=== PATIENT | male | born 1935 | race Caucasian/White ===

== ENCOUNTER 2016-08-16 11:27 | Inpatient (IN) | payer MEDICARE, BC ==
[~2016-08-16] VITALS: Ht 182.9 cm; Wt 90.7 kg
[~2016-08-16 11:27] MED LIST: ASPI-618 PO; BETH25TA9 PO; BLOO-668 IN; CARB1TAB24 PO; CARB1TAB39 PO; CEPH-570 PO; ENAL10TA75 PO; GLIP5TAB13 PO; MAGN400O6 PO; MELA5TAB PO; METO50TA7 PO; Metformin Hcl PO; PANT40TA2 PO; PIOG30TA10 PO; ROSU5TAB PO; SITA100T PO
[2016-08-16] MEDS ORDERED: BLOO-360 IN (11:50)
--- NOTE | 2016-08-16 12:05 | NUR ---
DR ANGELA AT THE BEDSIDE FOR EVAL AND EXAM.
[2016-08-16] MEDS ORDERED: IV NORMAL SALINE 1000 ML BAG IV ONE ×2 (12:15→14:30)
[2016-08-16] MEDS ORDERED: LEVOFLOXACIN 750MG/D5W 150 ML IV ONE ×2 (12:15→12:34)
[2016-08-16] MEDS ORDERED: GENTAMICIN SULFATE INJ 80 MG in IV DEXTROSE 5% 100 ML IV ONE (12:15)
[2016-08-16 12:34] LABS: BASOPHILS % (AUTO) 0.3 % (0.0-2.0); EOSINOPHILS # (AUTO) 0.1 K/uL (0.0-0.7); EOSINOPHILS % (AUTO) 0.9 % (0.0-7.0); HEMATOCRIT 36.1 % (40-50); HEMOGLOBIN 12.1 G/DL (14.0-18.0); LYMPHOCYTES # (AUTO) 0.9 K/UL (0.8-4.8); LYMPHOCYTES % (AUTO) 12.7 % (20.5-51.5); MEAN CORPUSCULAR HEMOGLOBIN 30.2 UUG (27.0-31.0); MEAN CORPUSCULAR HGB CONC 34 g/dL (32.0-37.0); MEAN CORPUSCULAR VOLUME 89.9 FL (82.0-92.0); MONOCYTES # (AUTO) 0.5 K/UL (0.1-1.30); MONOCYTES % (AUTO) 6.7 % (0.0-11.0); NEUTROPHILS # (AUTO) 5.4 K/UL (1.8-8.9); NEUTROPHILS % (AUTO) 79.4 % (38.5-71.5); PLATELET COUNT (AUTO) 269 K/UL (150-450); RED BLOOD CELL COUNT(AUTO) 4.02 MIL/UL (4.7-6.1); WHITE BLOOD COUNT (AUTO) 6.9 K/UL (4.0-11.2)
[2016-08-16] MEDS ORDERED: GENTAMICIN SULFATE 80 MG/2 ML VIAL ONE (12:34)
--- NOTE | 2016-08-16 12:45 | NUR ---
URINE COLLECTED AND SENT TO LAB PER MD ORDER.
[2016-08-16 12:54] LABS: CARBON DIOXIDE 27 mmol/L (21-32); CHLORIDE 104 mmol/L (98-107); CREATININE 1.4 mg/dL (0.6-1.3); GLUCOSE 128 mg/dL (74-106); POTASSIUM 4.5 mmol/L (3.5-5.1); UREA NITROGEN, BLOOD 31 mg/dL (7-18)
[2016-08-16 13:07] LABS: ALANINE AMINOTRANSFERASE 13 U/L (16-63); ALKALINE PHOSPHATASE 46 U/L (50-136); ASPARTATE AMINOTRANSFERASE 17 U/L (15-37); BILIRUBIN,DIRECT 0.1 mg/dL (0.0-0.2); BILIRUBIN,TOTAL 0.3 mg/dL (0.2-1.0); TOTAL PROTEIN, SERUM 8.1 g/dL (6.4-8.2)
[2016-08-16 13:07] LABS: *BILIRUBIN,URIN NEGATIVE (NEGATIVE); *BLOOD, URINE NEGATIVE (NEGATIVE); *CLARITY,URINE SLIGHTLY CLOUDY (CLEAR); *COLOR,URINE YELLOW (YELLOW); *KETONES,URINE TRACE (NEGATIVE); *PROTEIN,URINE 1+ (NEGATIVE); *UROBILINOGEN,URINE 0.2 E.U./dl (NORMAL); LEUKOCYTE ESTERASE ,URINE 1+ (NEGATIVE); NITRITE, URINE POSITIVE (NEGATIVE); PH,URINE 7.5 (5.0-8.0); UGLUCOSE NEGATIVE (NEGATIVE)
[2016-08-16 13:10] LABS: RBC,URINE 0-3 /HPF (0-3)
[2016-08-16 13:11] LABS: BACTERIA,URINE MANY /HPF (NONE SEEN); SQUAMOUS EPITHELIAL CELL,UR NONE SEEN /HPF (NONE SEEN)
--- NOTE | 2016-08-16 13:54 | NUR ---
Belonging list completed, pt not candidate for MRSA.
[2016-08-16] MEDS ORDERED: INSULIN REGULAR, HUMAN 300 UNIT/3 ML VIAL SQ PRN (14:30)
[2016-08-16] MEDS ORDERED: ONDANSETRON 4 MG/2 ML VIAL IV PRN (14:30)
[2016-08-16] MEDS ORDERED: DEXTROSE 50% 50 ML DISP.SYRIN IV PRN ×2 (14:30→20:14)
[2016-08-16 14:40] VITALS: BP 122/73
[2016-08-16] MEDS ORDERED: IV NS 1000 ML 1,000 ML IV ONE (15:15)
[2016-08-16 15:48] LABS: IRON, SERUM 56 ug/dL (50-175)
[2016-08-16] MEDS ORDERED: IV NS 1000 ML 1,000 ML IV PRN (16:00)
[2016-08-16] MEDS ORDERED: BLOOD SUGAR DIAGNOSTIC 1 EACH STRIP VI SCH (16:30)
--- NOTE | 2016-08-16 17:35 | NUR ---
PER DR. PAGE PUT D5NS AT 100 ML/HR IN ORDERS
[2016-08-16] MEDS: IV D5/ 0.9% NACL 1,000 ML IV PRN (17:51)
--- NOTE | 2016-08-16 19:30 | NUR ---
nsg: pt received awake but aphasic. does not follow commands. on RA saturating at 95%. tele, SR. private caregiver at the bedside. npo but on cont ivf with d5ns at 100ml/hr. HOB elevated 35 degrees. cont to monitor.
--- NOTE | 2016-08-16 19:42 | NUR ---
PT IS LAYING IN BED COMFORTABLY. NO S/S OF RESPIRATORY DISTRESS NOTED. NO P[AIN NOTED. ALL SAFETY NEEDS ARE MET. SITTER BY THE BEDSIDE.
[2016-08-16 20:00] VITALS: BP 130/78
[2016-08-16] MEDS: CARBIDOPA/LEVODOPA CR 25-100MG TABLET.SA PO SCH (21:00)
[2016-08-16] MEDS ORDERED: Medication Not On Formulary EA (Rosuvastatin Calcium (Crestor) 5 MG) PO SCH (21:00)
[2016-08-16] MEDS ORDERED: ATORVASTATIN 10 MG TABLET PO SCH (21:00)
[2016-08-16] MEDS: METOPROLOL SUCCINATE XL 50 MG TAB.SR.24H PO SCH (21:00)
[2016-08-17] VITALS: BP 139/82
--- NOTE | 2016-08-17 | NUR ---
nsg: no change in condition.
[2016-08-17] MEDS: BLOOD SUGAR DIAGNOSTIC 1 EACH STRIP VI SCH ×5 (00:04→20:56)
[2016-08-17] MEDS: INSULIN REGULAR, HUMAN 300 UNIT/3 ML VIAL SQ SCH ×3 (00:05→11:52)
[2016-08-17 04:00] VITALS: BP 139/72
[2016-08-17] MEDS: IV D5/ 0.9% NACL 1,000 ML IV PRN (04:05)
[2016-08-17] MEDS: glipiZIDE 5 MG TABLET PO SCH ×4 (05:59→18:40)
[2016-08-17] MEDS: PANTOPRAZOLE SODIUM 40 MG TABLET.DR PO SCH (05:59)
[2016-08-17] MEDS: CARBIDOPA/LEVODOPA 25-250MG TABLET PO SCH ×4 (06:00→18:40)
[2016-08-17 06:36] LABS: ALANINE AMINOTRANSFERASE 15 U/L (16-63); ALKALINE PHOSPHATASE 39 U/L (50-136); ASPARTATE AMINOTRANSFERASE 14 U/L (15-37); BILIRUBIN,TOTAL 0.3 mg/dL (0.2-1.0); CARBON DIOXIDE 25 mmol/L (21-32); CHLORIDE 105 mmol/L (98-107); GLUCOSE 144 mg/dL (74-106); POTASSIUM 3.7 mmol/L (3.5-5.1); TOTAL PROTEIN, SERUM 6.8 g/dL (6.4-8.2); UREA NITROGEN, BLOOD 18 mg/dL (7-18)
[2016-08-17 06:46] LABS: BASOPHILS % (AUTO) 0.3 % (0.0-2.0); EOSINOPHILS # (AUTO) 0.1 K/uL (0.0-0.7); EOSINOPHILS % (AUTO) 1.8 % (0.0-7.0); HEMOGLOBIN 10.4 G/DL (14.0-18.0); LYMPHOCYTES # (AUTO) 0.8 K/UL (0.8-4.8); LYMPHOCYTES % (AUTO) 20.6 % (20.5-51.5); MEAN CORPUSCULAR HEMOGLOBIN 30.7 UUG (27.0-31.0); MEAN CORPUSCULAR HGB CONC 35 g/dL (32.0-37.0); MEAN CORPUSCULAR VOLUME 88.8 FL (82.0-92.0); MONOCYTES # (AUTO) 0.4 K/UL (0.1-1.30); MONOCYTES % (AUTO) 9.2 % (0.0-11.0); NEUTROPHILS # (AUTO) 2.6 K/UL (1.8-8.9); NEUTROPHILS % (AUTO) 68.1 % (38.5-71.5)
[2016-08-17 07:09] LABS: WHITE BLOOD COUNT (AUTO) 3.9 K/UL (4.0-11.2)
[2016-08-17 07:10] LABS: HEMATOCRIT 30.2 % (40-50); PLATELET COUNT (AUTO) 200 K/UL (150-450)
--- NOTE | 2016-08-17 07:30 | NUR ---
Awake, non verbal, on moderate high back rest. IVF infusing. NPO maintained
[2016-08-17] MEDS ORDERED: PANTOPRAZOLE SODIUM 40 MG VIAL IV SCH (09:00)
--- NOTE | 2016-08-17 09:30 | NUR ---
ST eval done at bedside, with recommendation for Mechanical soft, Thickened nectar ordered. Breakfast served with aspiration precaution. Caregiver instructed.
[2016-08-17] MEDS: ASPIRIN EC 81 MG TABLET.DR PO SCH (09:33)
[2016-08-17] MEDS: BETHANECHOL CHLORIDE 25 MG TABLET PO SCH ×3 (09:34→16:11)
[2016-08-17 11:27] VITALS: BP 128/81
[2016-08-17] MEDS: PIOGLITAZONE HCL 30 MG TABLET PO SCH (11:36)
--- NOTE | 2016-08-17 12:00 | NUR ---
Noted elevated BG, patient eating Dr. Beard informed. IVF discontinued.
[2016-08-17] MEDS: LEVOFLOXACIN 750MG/D5W 150 ML IV SCH (13:42)
[2016-08-17] MEDS: ENALAPRIL 10 MG TABLET PO SCH (15:00)
[2016-08-17 15:30] VITALS: BP 106/66
--- NOTE | 2016-08-17 16:00 | NUR ---
Awake, alert, following commands.
[2016-08-17] MEDS ORDERED: DEXTROSE 50% 50 ML DISP.SYRIN IV PRN (16:15)
--- NOTE | 2016-08-17 18:13 | NUR ---
Awake, alert, but poor appetite per caregiver. Repositioned in bed comfortably
[2016-08-17 20:00] VITALS: BP 111/72
[2016-08-17] MEDS: CARBIDOPA/LEVODOPA CR 25-100MG TABLET.SA PO SCH (20:55)
[2016-08-17] MEDS: METOPROLOL SUCCINATE XL 50 MG TAB.SR.24H PO SCH (20:55)
[2016-08-17] MEDS ORDERED: PATIENT MAY USE OWN MED- MD OK PO SCH (21:00)
[2016-08-18 05:17] VITALS: BP 134/74
[2016-08-18] MEDS: CARBIDOPA/LEVODOPA 25-250MG TABLET PO SCH ×4 (06:11→18:24)
[2016-08-18] MEDS: PANTOPRAZOLE SODIUM 40 MG TABLET.DR PO SCH (06:12)
[2016-08-18] MEDS: glipiZIDE 5 MG TABLET PO SCH ×4 (06:12→18:23)
[2016-08-18] MEDS: BLOOD SUGAR DIAGNOSTIC 1 EACH STRIP VI SCH ×4 (06:33→20:42)
--- NOTE | 2016-08-18 06:37 | NUR ---
PT IN BED RESTING AT THIS TIME, SLEPT INTERMITTENTLY DURING SHIFT. IN NO ACUTE SIGNS OF DISTRESS. PT IS NONVERBAL. TURNED AND REPOSITIONED. WOUND CARE TO L AND R BUTTOCKS. BLOOD SUGAR CHECKED, LAST NIGHT WAS 67, GIVEN SNACKS, RECHECKED AND INCREASED TO 84. THIS AM BS WAS 130. CONTINUED TO MONITOR.
[2016-08-18] MEDS: ASPIRIN EC 81 MG TABLET.DR PO SCH (08:48)
[2016-08-18] MEDS: BETHANECHOL CHLORIDE 25 MG TABLET PO SCH ×3 (08:48→16:22)
[2016-08-18 11:25] VITALS: BP 117/72
[2016-08-18] MEDS: INSULIN REGULAR, HUMAN 300 UNIT/3 ML VIAL SQ PRN (11:58)
[2016-08-18] MEDS: PIOGLITAZONE HCL 30 MG TABLET PO SCH (11:58)
[2016-08-18] MEDS: LEVOFLOXACIN 750MG/D5W 150 ML IV SCH (12:06)
--- NOTE | 2016-08-18 12:37 | NUR ---
WOUND CARE CONSULT: PT PRESENTS WITH STAGE II ULCERS TO BILATERAL BUTTOCKS, PRESENT ON ADMISSION. RECOMMENDATIONS MADE FOR WOUND CARE AND SKIN PROTECTION. DISCUSSED WITH NURSING STAFF. PT IS INCONTINENT AND SOMEWHAT IMMOBILE. GERTRUDE SCORE IS 10. PT ON FIRST STEP MATTRESS. WILL SEE PRN. HEIN IN AGREEMENT WITH PLAN OF CARE. Addendum: 08/18/16 at 1238 by KEVIN SALINAS RN Amended: Links added.
[2016-08-18] MEDS ORDERED: Z GUARD REMEDY PASTE 57 GM TUBE TOP PRN (12:45)
[2016-08-18] MEDS: ENALAPRIL 10 MG TABLET PO SCH (15:00)
--- NOTE | 2016-08-18 15:03 | NUR ---
received the nursing report on the pt, z-guard will administer per 's order. Pt is laying in bed comfortably. All safety needs are met. Foxer by the bedside.
[2016-08-18 15:16] VITALS: BP 93/63
[2016-08-18] MEDS: Z GUARD REMEDY PASTE 57 GM TUBE TOP SCH ×2 (15:20→20:42)
--- NOTE | 2016-08-18 19:27 | NUR ---
PT IS SITTING UP IN BED. NO S/S OF RESPIRATORY DISTRESS NOTED. NO PAIN NOTED. CUSHION GUM APPLICATOR BY THE BEDSIDE. IV INTACT/PATENT.
--- NOTE | 2016-08-18 19:33 | NUR ---
Clinical pharmacy note-Vancomycin dosing per pharmacy Subjective: To start Vancomycin dosing on this 80 year old patient for UTI/early sepsis Objective: BUN 18 Scr 1.0 (08/17) WBC 3.9(08/17) Temp 98.6 Ht 6' Wt 200 lbs Urine culture: Staph Aureus >100k Assessment\Plan: Will start Vancomycin 1500mg IV every 16 hrs (first dose tonight at 2000) and draw trough by 4th dose (not ordered yet) for expected trough around 15( UTI but early sepsis, WBC 3.9, diabetic). Will monitor renal function closely to adjust the dose if needed. Will follow daily.
[2016-08-18 20:00] VITALS: BP 115/77
--- NOTE | 2016-08-18 20:00 | NUR ---
RECEIVED PATIENT AWAKE IN BED WITH PRIVATE CAREGIVER AT BEDSIDE. PATIENT IS ALERT TO SELF. APPEARS APHASIC BUT PATIENT DOES SPEAK AT TIMES. NO S/S OF PAIN OR DISCOMFORT. NO RESP. DISTRESS NOTED. VSS. H/L INTACT AND PATENT. PATIENT TRANSFERRED ROOM CLOSER TO NURSES STATION FOR CLOSER OBSERVATION. ON AIR MATTRESS. DRESSING NOTED TO BUTTOCKS/SACRAL AREA, C/D/I. ON RA. CALL LIGHT IN REACH. ALL NEEDS ATTENDED. WILL CONTINUE TO MONITOR.
[2016-08-18] MEDS: VANCOMYCIN IV 1,500 MG in IV NORMAL SALINE 500 ML IV SCH (20:11)
[2016-08-18] MEDS: CARBIDOPA/LEVODOPA CR 25-100MG TABLET.SA PO SCH (20:41)
[2016-08-18] MEDS: ACETAMINOPHEN 325 MG TABLET PO PRN (20:42)
[2016-08-18] MEDS: METOPROLOL SUCCINATE XL 50 MG TAB.SR.24H PO SCH (20:42)
--- NOTE | 2016-08-19 03:45 | NUR ---
PATIENT ASLEEP IN BED. REPOSITIONED TO SIDE. HEPLOCK NOTED TO RIGHT WRIST, DISLODGED. REINSERTED TO LEFT HAND #22 GAUGE. HEAVILY SLEEPING AND APPEARS SLIGHTLY DIAPHORETIC. CHECKED BLOOD SUGAR AND RECEIVED 118. VSS. WILL CONTINUE TO MONITOR AND ASSESS.
--- NOTE | 2016-08-19 04:07 | NUR ---
REPORT GIVEN TO RN. PATIENT ASLEEP IN BED. NO RESP. DISTRESS NOTED. ALL NEEDS ATTENDED. WILL CONTINUE TO MONITOR.
--- NOTE | 2016-08-19 04:10 | NUR ---
RECEIVED REPORT . PATIENT SLEEPING, EASILY AROUSING TO VERBAL COMMANDS. NO DISTRESS NOTED. NO BM DURING THE SHIFT . WILL CONTINUE TO MONITOR. SAFETY MEASURES OBSERVED.
[2016-08-19 06:00] VITALS: BP 112/63
[2016-08-19] MEDS: CARBIDOPA/LEVODOPA 25-250MG TABLET PO SCH ×4 (07:09→19:04)
[2016-08-19] MEDS: BLOOD SUGAR DIAGNOSTIC 1 EACH STRIP VI SCH ×4 (07:10→20:24)
[2016-08-19] MEDS: glipiZIDE 5 MG TABLET PO SCH ×4 (07:10→18:45)
[2016-08-19] MEDS: PANTOPRAZOLE SODIUM 40 MG TABLET.DR PO SCH (07:10)
[2016-08-19 07:43] LABS: CARBON DIOXIDE 24 mmol/L (21-32); CHLORIDE 106 mmol/L (98-107); GLUCOSE 115 mg/dL (74-106); MAGNESIUM 1.5 mg/dL (1.8-2.4); PHOSPHOROUS 4.2 mg/dL (2.5-4.9); POTASSIUM 3.6 mmol/L (3.5-5.1); UREA NITROGEN, BLOOD 5 mg/dL (7-18)
[2016-08-19 08:01] LABS: BASOPHILS % (AUTO) 0.3 % (0.0-2.0); EOSINOPHILS # (AUTO) 0.1 K/uL (0.0-0.7); HEMATOCRIT 33.1 % (40-50); HEMOGLOBIN 11.4 G/DL (14.0-18.0); LYMPHOCYTES # (AUTO) 0.8 K/UL (0.8-4.8); LYMPHOCYTES % (AUTO) 19.6 % (20.5-51.5); MEAN CORPUSCULAR HEMOGLOBIN 30.6 UUG (27.0-31.0); MEAN CORPUSCULAR HGB CONC 34 g/dL (32.0-37.0); MEAN CORPUSCULAR VOLUME 89.1 FL (82.0-92.0); MONOCYTES # (AUTO) 0.4 K/UL (0.1-1.30); MONOCYTES % (AUTO) 8.5 % (0.0-11.0); NEUTROPHILS # (AUTO) 2.8 K/UL (1.8-8.9); NEUTROPHILS % (AUTO) 69.6 % (38.5-71.5); PLATELET COUNT (AUTO) 213 K/UL (150-450); RED BLOOD CELL COUNT(AUTO) 3.71 MIL/UL (4.7-6.1); WHITE BLOOD COUNT (AUTO) 4.1 K/UL (4.0-11.2)
--- NOTE | 2016-08-19 08:30 | NUR ---
AWAKE CONFUSED FORGETFUL ON ASPIRATION /FALL PRECAUTION BED ALARM ON AND CALL LORA IN REACH
[2016-08-19] MEDS: BETHANECHOL CHLORIDE 25 MG TABLET PO SCH ×3 (09:17→17:26)
[2016-08-19] MEDS: ASPIRIN EC 81 MG TABLET.DR PO SCH (09:17)
[2016-08-19] MEDS: Z GUARD REMEDY PASTE 57 GM TUBE TOP SCH ×2 (09:18→20:08)
--- NOTE | 2016-08-19 10:00 | NUR ---
REPOSITION AND DIAPER CHANGE EAT SMALL AMT DIET CHANGE TO PUREE RESTING WELL NO SOB OR PAIN
--- NOTE | 2016-08-19 11:00 | NUR ---
URINE RESULT WAS MRSA POSITIVE REPORT TO Gregory SPENCER AND WILL NOTIFY ID MD DR SOSA/OR OUTSIDE [employer] SALES FOR HIM TODAY PATIENT ON ANTIBIOTICS VANCOMYCIN AND ZOSYN
[2016-08-19] MEDS: PIOGLITAZONE HCL 30 MG TABLET PO SCH (11:09)
[2016-08-19 11:15] VITALS: BP 115/72
--- NOTE | 2016-08-19 12:00 | NUR ---
PUT ON CONTACT ISOLATION PROTOCOL
[2016-08-19] MEDS: VANCOMYCIN IV 1,500 MG in IV NORMAL SALINE 500 ML IV SCH (12:08)
[2016-08-19] MEDS: INSULIN REGULAR, HUMAN 300 UNIT/3 ML VIAL SQ PRN ×3 (12:11→20:26)
--- NOTE | 2016-08-19 14:20 | NUR ---
Clinical pharmacy note-Vancomycin dosing per pharmacy Subjective: To continue Vancomycin dosing on this 80 year old patient for UTI/early sepsis Objective: BUN 5 Scr 1.0 WBC 4.1 Temp 98.4 Ht 6' Wt 200 lbs Urine culture: Staph Aureus >100k Assessment\Plan: As renal function stable, will continue Vancomycin 1500mg IV every 16 hrs (second dose was today at 1200) and draw trough by 4th dose (not ordered yet) for expected trough around 15( UTI but early sepsis, WBC 3.9, diabetic). Will monitor renal function closely to adjust the dose if needed. Will follow daily.
[2016-08-19] MEDS: MAGNESIUM SULFATE/D5W 100 ML IV SCH ×3 (14:29→17:26)
[2016-08-19 15:17] VITALS: BP 126/75
[2016-08-19] MEDS: ENALAPRIL 10 MG TABLET PO SCH (16:09)
--- NOTE | 2016-08-19 18:00 | NUR ---
STABLE HYMODYNAMIC SAFETY MEASURE PROVIDED CALL LORA IN REACH
--- NOTE | 2016-08-19 19:45 | NUR ---
RECEIVED PATIENT AWAKE IN BED. A/O X2. DR. JACKSON AT BEDSIDE TO SEE PATIENT. PATIENT IS ABLE TO FOLLOW DIRECTIONS AND VERBALIZE NEEDS. SPEECH IS DELAYED BUT PATIENT IS ALERT AND ABLE TO SPEAK. DENIES PAIN. NO S/S OF PAIN OR DISCOMFORT. NO RESP. DISTRESS NOTED. HEPLOCK INTACT AND PATENT, NOTED TO LEFT HAND #22 GAUGE. MEPILEX NOTED TO BILATERAL BUTTOCKS, C/D/I. BED ALARM ON. CALL LIGHT IN REACH, ALL NEEDS ATTENDED. WILL CONTINUE TO MONITOR.
[2016-08-19] MEDS: SULFAMETH/TRIMETH 800/160 MG TABLET PO SCH (20:07)
[2016-08-19] MEDS: CARBIDOPA/LEVODOPA CR 25-100MG TABLET.SA PO SCH (20:08)
[2016-08-19] MEDS: METOPROLOL SUCCINATE XL 50 MG TAB.SR.24H PO SCH (20:11)
[2016-08-19 20:18] VITALS: BP 104/63
[2016-08-20 04:51] VITALS: BP 122/76
[2016-08-20] MEDS: glipiZIDE 5 MG TABLET PO SCH ×5 (06:45→18:25)
[2016-08-20] MEDS: PANTOPRAZOLE SODIUM 40 MG TABLET.DR PO SCH ×2 (06:45→07:00)
[2016-08-20] MEDS: BLOOD SUGAR DIAGNOSTIC 1 EACH STRIP VI SCH ×4 (06:45→20:32)
[2016-08-20] MEDS: CARBIDOPA/LEVODOPA 25-250MG TABLET PO SCH ×5 (06:45→18:25)
--- NOTE | 2016-08-20 06:45 | NUR ---
PATIENT AWAKE IN BED. PASSIVE WHEN APPROACHED. PATIENT REFUSING TO TAKE MEDS AT THIS TIME. WILL TRY AGAIN.
--- NOTE | 2016-08-20 07:44 | NUR ---
PATIENT AWAKE. ATTEMPTED TO GIVE MEDS AND PATIENT REFUSED AND SPIT OUT MEDICATION. ENDORSED TO DAY SHIFT RN THAT PATIENT IS REFUSING . ALL NEEDS ATTENDED.
[2016-08-20 07:48] LABS: CARBON DIOXIDE 25 mmol/L (21-32); CHLORIDE 102 mmol/L (98-107); CREATININE 1.1 mg/dL (0.6-1.3); GLUCOSE 154 mg/dL (74-106); MAGNESIUM 1.9 mg/dL (1.8-2.4); POTASSIUM 3.6 mmol/L (3.5-5.1); UREA NITROGEN, BLOOD 7 mg/dL (7-18)
[2016-08-20 07:54] LABS: EOSINOPHILS # (AUTO) 0.1 K/uL (0.0-0.7); EOSINOPHILS % (AUTO) 1.7 % (0.0-7.0); HEMOGLOBIN 12.9 G/DL (14.0-18.0); LYMPHOCYTES % (AUTO) 16.5 % (20.5-51.5); MEAN CORPUSCULAR HEMOGLOBIN 29.9 UUG (27.0-31.0); MEAN CORPUSCULAR HGB CONC 34 g/dL (32.0-37.0); MEAN CORPUSCULAR VOLUME 89.2 FL (82.0-92.0); MONOCYTES # (AUTO) 0.4 K/UL (0.1-1.30); MONOCYTES % (AUTO) 7.7 % (0.0-11.0); NEUTROPHILS # (AUTO) 4.3 K/UL (1.8-8.9); NEUTROPHILS % (AUTO) 74.1 % (38.5-71.5); PLATELET COUNT (AUTO) 246 K/UL (150-450)
[2016-08-20 07:58] LABS: HEMATOCRIT 38.4 % (40-50); RED BLOOD CELL COUNT(AUTO) 4.31 MIL/UL (4.7-6.1); WHITE BLOOD COUNT (AUTO) 5.8 K/UL (4.0-11.2)
--- NOTE | 2016-08-20 08:30 | NUR ---
RESTING QUIET NO SOB OR PAIN ON FALL AND ASPIRATION PRECAUTION BED ALARM ON AND CALL LIGHT WITHIN REACH
[2016-08-20] MEDS: BETHANECHOL CHLORIDE 25 MG TABLET PO SCH ×3 (08:37→15:49)
[2016-08-20] MEDS: SULFAMETH/TRIMETH 800/160 MG TABLET PO SCH ×2 (08:37→20:31)
[2016-08-20] MEDS: ACETAMINOPHEN 325 MG TABLET PO PRN (08:37)
[2016-08-20] MEDS: ASPIRIN EC 81 MG TABLET.DR PO SCH (08:37)
[2016-08-20] MEDS: Z GUARD REMEDY PASTE 57 GM TUBE TOP SCH ×2 (08:38→20:31)
[2016-08-20] MEDS: INSULIN REGULAR, HUMAN 300 UNIT/3 ML VIAL SQ PRN ×3 (08:41→21:16)
--- NOTE | 2016-08-20 11:00 | NUR ---
DR PAGE ,S ROME PATIENT AND LAB RESULT [facility] MOD AMT VISUAL BASIC .NET DEVELOPER AT BEDSIDE
[2016-08-20 11:27] VITALS: BP 114/67
[2016-08-20] MEDS: PIOGLITAZONE HCL 30 MG TABLET PO SCH (11:36)
[2016-08-20] MEDS: ENALAPRIL 10 MG TABLET PO SCH (15:00)
[2016-08-20 15:50] VITALS: BP 108/62
--- NOTE | 2016-08-20 18:00 | NUR ---
STABLE CONDITION NO RESPIRATORY DISTRESS SAFETY MEASURE PROVIDED AND CALL LIGHT WITHIN REACH INSTRUCTION TO CALL WHEN NEEDED
[2016-08-20 20:00] VITALS: BP 103/68
--- NOTE | 2016-08-20 20:07 | NUR ---
PATIENT RECEIVED IN BED SITTING UP, NO ACUTE DISTRESS NOTED. PATIENT IS ALERT BUT SLOW IN RESPONSE AND FORGETFUL. HEP LOCK TO LEFT FOREARM, INTACT LUNGS CLEAR THROUGH OUT WITH AUSCULTATION. REMAINS ON ISOLATION MRSA URINE. PT ON AIR MATTRESS AND TURNED EVERY TWO HOURS. NO ACUTE DISTRESS NOTED. BED IN LOW AND LOCKED POSITION, CALL LIGHT WITHIN REACH.
[2016-08-20] MEDS: CARBIDOPA/LEVODOPA CR 25-100MG TABLET.SA PO SCH (20:31)
[2016-08-20] MEDS: METOPROLOL SUCCINATE XL 50 MG TAB.SR.24H PO SCH (20:51)
--- NOTE | 2016-08-20 22:30 | NUR ---
Patient observed in bed restless. Patient non verbal but makes eye contact and able to nodd yes or no. Pt denies any pain or physical discomfort. Pt changed by staff, skin care provided. Remains on isolation of urine MRSA. No acute distress noted. Will continue to monitor for safety.
--- NOTE | 2016-08-21 01:09 | NUR ---
Pt in bed sleeping at this time. No acute distress noted. Safety measures provided.
--- NOTE | 2016-08-21 04:57 | NUR ---
Patient still sleeping in bed, no acute distress noted. Will continue to monitor for safety.
--- NOTE | 2016-08-21 06:00 | NUR ---
patient changed and given bed bath by staff. noted redness to buttocks, skin care provided as ordered and mepalex applied. Patient able to go back to sleep, no acute distress noted. Remains on contact isolation for MRSA of urine. Safety. measures applied.
[2016-08-21] MEDS: CARBIDOPA/LEVODOPA 25-250MG TABLET PO SCH ×4 (06:12→19:00)
[2016-08-21] MEDS: PANTOPRAZOLE SODIUM 40 MG TABLET.DR PO SCH (06:13)
[2016-08-21 06:38] VITALS: BP 128/68
[2016-08-21] MEDS: BLOOD SUGAR DIAGNOSTIC 1 EACH STRIP VI SCH ×5 (06:49→21:43)
[2016-08-21 07:03] LABS: CARBON DIOXIDE 25 mmol/L (21-32); CHLORIDE 104 mmol/L (98-107); CREATININE 1.1 mg/dL (0.6-1.3); GLUCOSE 111 mg/dL (74-106); POTASSIUM 3.5 mmol/L (3.5-5.1); UREA NITROGEN, BLOOD 13 mg/dL (7-18)
[2016-08-21] MEDS: glipiZIDE 5 MG TABLET PO SCH ×4 (07:07→19:00)
[2016-08-21 08:00] VITALS: BP 101/71
--- NOTE | 2016-08-21 08:00 | NUR ---
AWAKE COOPERASTE WELL NO SOB OR PAIN ON ASPIRATION AND FALL PRECAUTION BED ALARM ON AND CALL LORA WITHIN REACH GRADES 1 THRU 6 HOME TEACHER AT BEDSIDE EAT BREAKFAST MOD AMT THIS AM
[2016-08-21] MEDS: SULFAMETH/TRIMETH 800/160 MG TABLET PO SCH ×2 (08:31→21:43)
[2016-08-21] MEDS: ACETAMINOPHEN 325 MG TABLET PO PRN (08:31)
[2016-08-21] MEDS: Z GUARD REMEDY PASTE 57 GM TUBE TOP SCH ×2 (08:32→21:44)
[2016-08-21] MEDS: BETHANECHOL CHLORIDE 25 MG TABLET PO SCH ×3 (08:32→16:37)
[2016-08-21] MEDS: ASPIRIN EC 81 MG TABLET.DR PO SCH (08:32)
[2016-08-21 08:35] LABS: BASOPHILS % (AUTO) 0.3 % (0.0-2.0); EOSINOPHILS # (AUTO) 0.1 K/uL (0.0-0.7); EOSINOPHILS % (AUTO) 1.5 % (0.0-7.0); HEMOGLOBIN 11.4 G/DL (14.0-18.0); LYMPHOCYTES # (AUTO) 0.8 K/UL (0.8-4.8); MEAN CORPUSCULAR HEMOGLOBIN 29.9 UUG (27.0-31.0); MEAN CORPUSCULAR HGB CONC 33 g/dL (32.0-37.0); MEAN CORPUSCULAR VOLUME 89.7 FL (82.0-92.0); MONOCYTES # (AUTO) 0.3 K/UL (0.1-1.30); MONOCYTES % (AUTO) 7.9 % (0.0-11.0); NEUTROPHILS # (AUTO) 3.2 K/UL (1.8-8.9); NEUTROPHILS % (AUTO) 71.3 % (38.5-71.5); PLATELET COUNT (AUTO) 235 K/UL (150-450); WHITE BLOOD COUNT (AUTO) 4.4 K/UL (4.0-11.2)
[2016-08-21 08:38] LABS: HEMATOCRIT 34.1 % (40-50)
[2016-08-21] MEDS: PIOGLITAZONE HCL 30 MG TABLET PO SCH (11:26)
[2016-08-21 12:07] VITALS: BP 116/72
[2016-08-21] MEDS: ENALAPRIL 10 MG TABLET PO SCH (15:54)
[2016-08-21 16:19] VITALS: BP 113/59
[2016-08-21] MEDS: INSULIN REGULAR, HUMAN 300 UNIT/3 ML VIAL SQ PRN ×2 (16:42→16:48)
--- NOTE | 2016-08-21 18:00 | NUR ---
SAME CONDITION NO RESPIRATORY DISTRESS SAFETY MEASURE PROVIDED CALL LORA WITHIN REACH AND BED ALARM ON
[2016-08-21 20:00] VITALS: BP 105/67
--- NOTE | 2016-08-21 20:00 | NUR ---
RECEIVED PATIENT ASLEEP IN BED. EASILY AROUSABLE. A/O X2. ABLE TO VERBALIZE NEEDS, SPEECH DELAYED AT TIMES. NO S/S OF PAIN OR DISCOMFORT. NO RESP. DISTRESS NOTED. ON AIR MATTRESS. VS WNL. HEPLOCK INTACT AND PATENT, NOTED TO LEFT FA #22 GAUGE. BED ALARM ON. CALL LIGHT IN REACH. ALL NEEDS ATTENDED. WILL CONTINUE TO MONITOR.
[2016-08-21] MEDS: METOPROLOL SUCCINATE XL 50 MG TAB.SR.24H PO SCH (21:43)
[2016-08-21] MEDS: CARBIDOPA/LEVODOPA CR 25-100MG TABLET.SA PO SCH (21:44)
[2016-08-22] MEDS: PANTOPRAZOLE SODIUM 40 MG TABLET.DR PO SCH (06:12)
--- NOTE | 2016-08-22 06:15 | NUR ---
PATIENT ASLEEP IN BED. EASILY AROUSABLE. VSS. SLEPT WELL. BED ALARM ON. ALL NEEDS ATTENDED.
[2016-08-22] MEDS: BLOOD SUGAR DIAGNOSTIC 1 EACH STRIP VI SCH ×3 (06:40→16:28)
[2016-08-22 06:52] VITALS: BP 110/63
[2016-08-22 06:58] LABS: BASOPHILS % (AUTO) 0.2 % (0.0-2.0); EOSINOPHILS # (AUTO) 0.1 K/uL (0.0-0.7); EOSINOPHILS % (AUTO) 1.4 % (0.0-7.0); HEMATOCRIT 34.1 % (40-50); HEMOGLOBIN 11.5 G/DL (14.0-18.0); LYMPHOCYTES # (AUTO) 0.9 K/UL (0.8-4.8); LYMPHOCYTES % (AUTO) 12.9 % (20.5-51.5); MEAN CORPUSCULAR HEMOGLOBIN 30.4 UUG (27.0-31.0); MEAN CORPUSCULAR HGB CONC 34 g/dL (32.0-37.0); MEAN CORPUSCULAR VOLUME 89.9 FL (82.0-92.0); MONOCYTES # (AUTO) 0.5 K/UL (0.1-1.30); MONOCYTES % (AUTO) 6.7 % (0.0-11.0); NEUTROPHILS # (AUTO) 5.9 K/UL (1.8-8.9); NEUTROPHILS % (AUTO) 78.8 % (38.5-71.5); PLATELET COUNT (AUTO) 229 K/UL (150-450); WHITE BLOOD COUNT (AUTO) 7.4 K/UL (4.0-11.2)
[2016-08-22] MEDS: CARBIDOPA/LEVODOPA 25-250MG TABLET PO SCH ×3 (07:34→15:53)
[2016-08-22] MEDS: glipiZIDE 5 MG TABLET PO SCH ×3 (07:34→15:53)
[2016-08-22 08:02] LABS: CARBON DIOXIDE 25 mmol/L (21-32); CHLORIDE 103 mmol/L (98-107); CREATININE 1.2 mg/dL (0.6-1.3); GLUCOSE 142 mg/dL (74-106); MAGNESIUM 1.7 mg/dL (1.8-2.4); PHOSPHOROUS 3.7 mg/dL (2.5-4.9); POTASSIUM 3.8 mmol/L (3.5-5.1); UREA NITROGEN, BLOOD 12 mg/dL (7-18)
[2016-08-22] MEDS: INSULIN REGULAR, HUMAN 300 UNIT/3 ML VIAL SQ PRN ×2 (08:19→16:31)
[2016-08-22] MEDS: BETHANECHOL CHLORIDE 25 MG TABLET PO SCH ×2 (08:52→13:31)
[2016-08-22] MEDS: Z GUARD REMEDY PASTE 57 GM TUBE TOP SCH (08:52)
[2016-08-22] MEDS: SULFAMETH/TRIMETH 800/160 MG TABLET PO SCH (08:52)
[2016-08-22] MEDS: ASPIRIN EC 81 MG TABLET.DR PO SCH (08:52)
--- NOTE | 2016-08-22 09:00 | NUR ---
RECEIVED PATIENT IN BED WITH EYES CLOSED BUT EASILY OPENS EYES WHEN TOUCHED OR NAME IS CALLED TOTALLY DEPENDENT FOR ALL ADL.TURNED AND REPOSITIONED Q2H.TX ORDERED MADE COMFORTABLE NOT IN DISTRESS AT THIS TIME.
--- NOTE | 2016-08-22 11:00 | NUR ---
Discharge Plan: Once medically cleared patient will be discharged back home [[address] [place] [address]]. Patient has a caregiver. [facility] [[phone]] will follow up with the patient. Patient will be transported via private care with caregiver. Patient and Bety [daughter] is aware and agreeable with discharge plans.
[2016-08-22] MEDS ORDERED: MAGNESIUM SULFATE/D5W 100 ML IV SCH (11:15)
[2016-08-22] MEDS: PIOGLITAZONE HCL 30 MG TABLET PO SCH (11:57)
--- NOTE | 2016-08-22 12:00 | NUR ---
MAGNESSIUM LEVEL IS 1.[address] ELY WITH NEW ORDERS AND NOTED.
[2016-08-22 12:03] VITALS: BP 110/59
[2016-08-22 15:24] VITALS: BP 109/59
[2016-08-22 15:53] VITALS: BP 115/71
[2016-08-22] MEDS: ENALAPRIL 10 MG TABLET PO SCH (15:53)
[2016-08-22] MEDS ORDERED: SULF1TAB3 PO (16:26)
--- NOTE | 2016-08-22 17:20 | NUR ---
NEW ORDER NOTED TO DISCHARGE PATIENT HOME WITH HOME HEALTH HIS DAUGHTER AND UTILITIES GROUND WORKER NATE [place].
--- NOTE | 2016-08-22 18:35 | NUR ---
PATIENT DISCHARGED PICKED UP BY HIS PRIVATE CUFF SETTER LOCKSTITCH NATE IN SATISFACTORY CONDITION WITH DISCHARGE INSTRUCTIONS AND PRESCRIPTIONS AND PATIENT INSTRUCTED TO CONTINUE WITH ANTIBIOTICS ORDERED AND CALL HIS PRIMARY DOCTOR WITHIN THE NEXT ONE TO TWO WEEKS AND HE EXPRESSED UNDERSTANDING.
== END 2016-08-22 18:36 | disposition home health service (06) | DRG 871 ==
LOC: ER 11:29 → MED 14:27 → TELE 14:38 → MED 08-17 11:25
PROVIDERS: ADMIT Internal Medicine; ATTEND Internal Medicine
DX: A41.9 Sepsis, unspecified organism (principal); G93.41 Metabolic encephalopathy; R65.21 Severe sepsis with septic shock; N17.0 Acute kidney failure with tubular necrosis; N39.0 Urinary tract infection, site not specified; D68.59 Other primary thrombophilia; E87.2 Acidosis; Z74.01 Bed confinement status; Z87.440 Personal history of urinary (tract) infections; N40.0 Benign prostatic hyperplasia without lower urinary tract symptoms; Z95.1 Presence of aortocoronary bypass graft; I25.10 Atherosclerotic heart disease of native coronary artery without angina pectoris; G47.33 Obstructive sleep apnea (adult) (pediatric); G20 Parkinson's disease; K21.9 Gastro-esophageal reflux disease without esophagitis; E11.9 Type 2 diabetes mellitus without complications; Z88.8 Allergy status to other drugs, medicaments and biological substances; D64.9 Anemia, unspecified; E66.9 Obesity, unspecified; K44.9 Diaphragmatic hernia without obstruction or gangrene; Z98.890 Other specified postprocedural states; Z74.09 Other reduced mobility; N20.0 Calculus of kidney; R13.10 Dysphagia, unspecified; B95.62 Methicillin resistant Staphylococcus aureus infection as the cause of diseases classified elsewhere; K76.0 Fatty (change of) liver, not elsewhere classified; I10 Essential (primary) hypertension; Z79.84 Long term (current) use of oral hypoglycemic drugs; Z79.82 Long term (current) use of aspirin; Z90.79 Acquired absence of other genital organ(s); Z79.899 Other long term (current) drug therapy; E78.00 Pure hypercholesterolemia, unspecified
CPT/HCPCS: 36415; 70030-TC; 71010; 83550; 83605; 83735; 84100; 85025; 85730; 87040; 87077; 87086; 92523; 92526; 92610; 93005; 93307; 97110; 97116; 97161; 97530; A4663; C1758; C9113; J1580; J1815; J1956; J3370; J3475; J7030; J7040; J7042; J7050; J7060

== ENCOUNTER 2017-03-07 20:47 | Inpatient (IN) | payer MEDICARE, BC ==
[~2017-03-07] VITALS: Ht 182.9 cm; Wt 81.2 kg
[~2017-03-07 20:47] MED LIST changes: +BLOO-360 IN; -BLOO-668 IN; -CEPH-570 PO; -MAGN400O6 PO; -MELA5TAB PO; +SULF1TAB3 PO
[2017-03-07] MEDS ORDERED: IV NORMAL SALINE 1000 ML BAG IV ONE (23:30)
[2017-03-07] MEDS ORDERED: GENTAMICIN SULFATE INJ 80 MG in IV DEXTROSE 5% 100 ML IV ONE (23:30)
[2017-03-07] MEDS ORDERED: VANCOMYCIN IV 1,000 MG in IV DEXTROSE 5% 250 ML IV ONE (23:30)
[2017-03-07] MEDS ORDERED: CEFTRIAXONE 1 G in IV DEXTROSE 5% 50 ML IV ONE (23:30)
[2017-03-07] MEDS ORDERED: CEFTRIAXONE 1 G VIAL ONE (23:57)
[2017-03-08 00:02] LABS: BASOPHILS % (AUTO) 0.2 % (0.0-2.0); EOSINOPHILS % (AUTO) 0.1 % (0.0-7.0); HEMATOCRIT 32.5 % (36.7-47.1); HEMOGLOBIN 10.9 g/dL (12.5-16.3); LYMPHOCYTES # (AUTO) 0.3 K/uL (20.0-40.0); LYMPHOCYTES % (AUTO) 4.4 % (20.5-51.5); MEAN CORPUSCULAR HEMOGLOBIN 30.8 uug (23.8-33.4); MEAN CORPUSCULAR HGB CONC 34 g/dL (32.5-36.3); MEAN CORPUSCULAR VOLUME 92.1 fL (73.0-96.2); MONOCYTES # (AUTO) 0.2 K/uL (2.0-10.0); MONOCYTES % (AUTO) 3.4 % (0.0-11.0); NEUTROPHILS % (AUTO) 91.9 % (38.5-71.5); PLATELET COUNT (AUTO) 244 K/uL (152-348); RED BLOOD CELL COUNT(AUTO) 3.54 MIL/uL (4.06-5.63); WHITE BLOOD COUNT (AUTO) 6.6 K/uL (3.6-10.2)
[2017-03-08 00:11] LABS: CARBON DIOXIDE 19 mmol/L (21-32); CHLORIDE 100 mmol/L (98-107); CREATININE 2.3 mg/dL (0.6-1.3); GLUCOSE 193 mg/dL (74-106); POTASSIUM 3.9 mmol/L (3.5-5.1); UREA NITROGEN, BLOOD 34 mg/dL (7-18)
[2017-03-08 00:18] LABS: ABG BASE EXCESS -7.3 mmol/L; ABG HCO3 16.6 mmol/L; ABG PCO2 28.2 mmHg (35.0-45.0); ABG PH 7.387 (7.350-7.450); ABG PO2 114.3 mmHg (75.0-100.0); ABG SITE RIGHT BRACHIAL; ABG TOTAL HEMOGLOBIN 10.5 G/dL (13.5-18.0); COHb 0.4 % (0.5-1.5); MetHb 0.3 % (0.0-1.5); O2Hb 96.7 % (94.0-97.0)
[2017-03-08] MEDS ORDERED: GENTAMICIN SULFATE 80 MG/2 ML VIAL ONE (00:21)
[2017-03-08 00:23] LABS: ALANINE AMINOTRANSFERASE 16 U/L (16-63); ALKALINE PHOSPHATASE 48 U/L (50-136); ASPARTATE AMINOTRANSFERASE 15 U/L (15-37); BILIRUBIN,DIRECT 0.1 mg/dL (0.0-0.2); BILIRUBIN,TOTAL 0.5 mg/dL (0.2-1.0); TOTAL PROTEIN, SERUM 7.8 g/dL (6.4-8.2)
[2017-03-08 01:17] LABS: *BILIRUBIN,URIN NEGATIVE (NEGATIVE); *BLOOD, URINE NEGATIVE (NEGATIVE); *CLARITY,URINE CLEAR (CLEAR); *COLOR,URINE YELLOW (YELLOW); *KETONES,URINE TRACE (NEGATIVE); *PROTEIN,URINE NEGATIVE (NEGATIVE); *UROBILINOGEN,URINE 0.2 E.U./dl (NORMAL); LEUKOCYTE ESTERASE ,URINE TRACE (NEGATIVE); NITRITE, URINE NEGATIVE (NEGATIVE); PH,URINE 5.5 (5.0-8.0); UGLUCOSE NEGATIVE (NEGATIVE)
[2017-03-08 01:25] LABS: BACTERIA,URINE NONE SEEN /HPF (NONE SEEN); RBC,URINE 0-3 /HPF (0-3); SQUAMOUS EPITHELIAL CELL,UR MODERATE /HPF (NONE SEEN); WBC,URINE 0-3 /HPF (0-3)
[2017-03-08] MEDS ORDERED: VANCOMYCIN IV 200 ML ONE (01:42)
[2017-03-08] MEDS ORDERED: HYDROMORPHONE 1 MG/1 ML DISP.SYRIN IV ONE (01:45)
[2017-03-08] MEDS ORDERED: HYDROMORPHONE 1 MG/1 ML DISP.SYRIN ONE (01:52)
[2017-03-08] MEDS ORDERED: INSULIN REGULAR, HUMAN 300 UNIT/3 ML VIAL SQ PRN (06:15)
[2017-03-08] MEDS ORDERED: DEXTROSE 50% 50 ML DISP.SYRIN IV PRN (06:15)
[2017-03-08] MEDS ORDERED: MAGNESIUM HYDROXIDE 30 ML LIQUID UDC PO PRN (06:15)
[2017-03-08] MEDS ORDERED: Z GUARD REMEDY PASTE 57 GM TUBE TOP PRN (06:15)
[2017-03-08] MEDS ORDERED: ONDANSETRON 4 MG/2 ML VIAL IV PRN (06:15)
[2017-03-08] MEDS ORDERED: ACETAMINOPHEN 325 MG TABLET PO PRN (06:15)
[2017-03-08] MEDS ORDERED: PIPERACILLIN/TAZOBACTAM/D5W 50 ML IV SCH (06:15)
[2017-03-08] MEDS ORDERED: HYDROCODONE/APAP 5-325MG TABLET PO PRN (06:15)
[2017-03-08] MEDS ORDERED: INSULIN REGULAR, HUMAN 300 UNITS/3 ML VIAL SQ PRN (06:15)
[2017-03-08 07:25] VITALS: BP 112/69
[2017-03-08] MEDS: BLOOD SUGAR DIAGNOSTIC 1 EACH STRIP VI SCH ×4 (08:41→20:48)
[2017-03-08] MEDS: PANTOPRAZOLE SODIUM 40 MG TABLET.DR PO SCH (08:41)
[2017-03-08] MEDS: IV NS 1000 ML 1,000 ML IV PRN (08:42)
[2017-03-08] MEDS: PIPERACILLIN/TAZOBACTAM/D5W 2.25 G in PREMIXED 1 EACH IV SCH ×2 (09:53→18:34)
[2017-03-08] MEDS: ASPIRIN EC 81 MG TABLET.DR PO SCH (11:25)
[2017-03-08] MEDS: BETHANECHOL CHLORIDE 25 MG TABLET PO SCH ×3 (11:25→17:00)
[2017-03-08] MEDS: CARBIDOPA/LEVODOPA 25-250MG TABLET PO SCH ×4 (11:25→20:17)
[2017-03-08 11:55] VITALS: BP 92/59
[2017-03-08] MEDS: ACETAMINOPHEN 650 MG SUPP.RECT RC PRN (14:02)
[2017-03-08] MEDS ORDERED: BUMETANIDE INJ 2 MG in IV DEXTROSE 5% 32 ML IV ONE (15:15)
[2017-03-08] MEDS: ALBUTEROL SULFATE 2.5 MG/3 ML NEBU NEB SCH ×2 (15:30→17:57)
[2017-03-08] MEDS: IPRATROPIUM BROMIDE 0.5 MG/2.5 ML NEBU NEB SCH ×2 (15:30→17:57)
[2017-03-08] MEDS: ACETYLCYSTEINE 10% 4ML VIAL NEB SCH ×2 (15:30→22:51)
[2017-03-08] MEDS ORDERED: FUROSEMIDE 40 MG/4 ML VIAL IV ONE (15:45)
[2017-03-08 16:19] VITALS: BP 99/51
[2017-03-08 16:29] LABS: CARBON DIOXIDE 23 mmol/L (21-32); CHLORIDE 107 mmol/L (98-107); CREATININE 1.5 mg/dL (0.6-1.3); GLUCOSE 89 mg/dL (74-106); MAGNESIUM 1.9 mg/dL (1.8-2.4); PHOSPHOROUS 3.3 mg/dL (2.5-4.9); POTASSIUM 4.3 mmol/L (3.5-5.1); UREA NITROGEN, BLOOD 36 mg/dL (7-18)
[2017-03-08 16:37] LABS: LYMPHOCYTES # (AUTO) 0.3 K/uL (20.0-40.0); LYMPHOCYTES % (AUTO) 4.5 % (20.5-51.5); MEAN CORPUSCULAR HEMOGLOBIN 31.2 uug (23.8-33.4); MEAN CORPUSCULAR HGB CONC 34 g/dL (32.5-36.3); MEAN CORPUSCULAR VOLUME 91.2 fL (73.0-96.2); MONOCYTES # (AUTO) 0.2 K/uL (2.0-10.0); MONOCYTES % (AUTO) 2.7 % (0.0-11.0); NEUTROPHILS # (AUTO) 5.8 K/uL (1.8-8.9); NEUTROPHILS % (AUTO) 92.8 % (38.5-71.5); PLATELET COUNT (AUTO) 196 K/uL (152-348); RED BLOOD CELL COUNT(AUTO) 2.74 MIL/uL (4.06-5.63); WHITE BLOOD COUNT (AUTO) 6.3 K/uL (3.6-10.2)
[2017-03-08 17:10] LABS: HEMOGLOBIN 8.5 g/dL (12.5-16.3)
[2017-03-08 19:40] LABS: *CREATININE,URINE 42.9 mg/dL (30-125); *URINE TOTAL PROTEIN RANDOM 47.2 mg/dL (<150/24HR)
[2017-03-08 19:41] LABS: *BILIRUBIN,URIN NEGATIVE (NEGATIVE); *BLOOD, URINE 2+ (NEGATIVE); *CLARITY,URINE SLIGHTLY CLOUDY (CLEAR); *COLOR,URINE LIGHT YELLOW (YELLOW); *KETONES,URINE NEGATIVE (NEGATIVE); *PROTEIN,URINE 1+ (NEGATIVE); *UROBILINOGEN,URINE 0.2 E.U./dl (NORMAL); LEUKOCYTE ESTERASE ,URINE NEGATIVE (NEGATIVE); NITRITE, URINE NEGATIVE (NEGATIVE); PH,URINE 5.5 (5.0-8.0); UGLUCOSE NEGATIVE (NEGATIVE)
[2017-03-08 20:00] VITALS: BP 100/55
[2017-03-08] MEDS: METOPROLOL SUCCINATE XL 50 MG TAB.SR.24H PO SCH (20:17)
[2017-03-08] MEDS: CARBIDOPA/LEVODOPA CR 25-100MG TABLET.SA PO SCH (20:17)
[2017-03-08] MEDS: ROSUVASTATIN 5 MG PO SCH (20:20)
[2017-03-08] MEDS: [UNRECOGNIZED DRUG - OTHER] PO SCH (20:20)
[2017-03-08] MEDS ORDERED: ATORVASTATIN 10 MG TABLET PO SCH (21:00)
[2017-03-08] MEDS ORDERED: Medication Not On Formulary EA (Rosuvastatin Calcium (Crestor) 5 MG) PO SCH (21:00)
[2017-03-08 22:36] LABS: MUCUS,URINE MANY /LPF (0-FEW); RBC,URINE 20-50 /HPF (0-3)
[2017-03-08] MEDS: ALBUTEROL SULFATE 2.5 MG/3 ML NEBU NEB PRN (22:51)
[2017-03-08] MEDS: IPRATROPIUM BROMIDE 0.5 MG/2.5 ML NEBU NEB PRN (22:52)
[2017-03-09] VITALS: BP 122/60
[2017-03-09] MEDS: ACETAMINOPHEN 650 MG SUPP.RECT RC PRN ×2 (01:27→17:47)
[2017-03-09] MEDS: IV NS 1000 ML 1,000 ML IV PRN ×2 (02:36→20:08)
[2017-03-09 04:00] VITALS: BP 100/60
[2017-03-09] MEDS: PIPERACILLIN/TAZOBACTAM/D5W 2.25 G in PREMIXED 1 EACH IV SCH ×3 (05:09)
[2017-03-09 06:38] LABS: ALANINE AMINOTRANSFERASE 9 U/L (16-63); ALKALINE PHOSPHATASE 39 U/L (50-136); ASPARTATE AMINOTRANSFERASE 43 U/L (15-37); BILIRUBIN,TOTAL 0.3 mg/dL (0.2-1.0); CARBON DIOXIDE 27 mmol/L (21-32); CHLORIDE 106 mmol/L (98-107); CREATININE 1.4 mg/dL (0.6-1.3); GLUCOSE 90 mg/dL (74-106); MAGNESIUM 1.9 mg/dL (1.8-2.4); PHOSPHOROUS 3.7 mg/dL (2.5-4.9); POTASSIUM 3.7 mmol/L (3.5-5.1); TOTAL PROTEIN, SERUM 6.4 g/dL (6.4-8.2); UREA NITROGEN, BLOOD 32 mg/dL (7-18)
[2017-03-09] MEDS: BLOOD SUGAR DIAGNOSTIC 1 EACH STRIP VI SCH ×3 (06:38→17:05)
[2017-03-09] MEDS: PANTOPRAZOLE SODIUM 40 MG TABLET.DR PO SCH (06:38)
[2017-03-09 06:56] LABS: BASOPHILS % (AUTO) 0.1 % (0.0-2.0); EOSINOPHILS % (AUTO) 0.1 % (0.0-7.0); HEMATOCRIT 25.2 % (36.7-47.1); HEMOGLOBIN 8.4 g/dL (12.5-16.3); LYMPHOCYTES # (AUTO) 0.2 K/uL (20.0-40.0); LYMPHOCYTES % (AUTO) 4.1 % (20.5-51.5); MEAN CORPUSCULAR HEMOGLOBIN 30.6 uug (23.8-33.4); MEAN CORPUSCULAR HGB CONC 34 g/dL (32.5-36.3); MEAN CORPUSCULAR VOLUME 91.3 fL (73.0-96.2); MONOCYTES # (AUTO) 0.1 K/uL (2.0-10.0); MONOCYTES % (AUTO) 2.8 % (0.0-11.0); NEUTROPHILS # (AUTO) 4.4 K/uL (1.8-8.9); NEUTROPHILS % (AUTO) 92.9 % (38.5-71.5); PLATELET COUNT (AUTO) 179 K/uL (152-348); RED BLOOD CELL COUNT(AUTO) 2.76 MIL/uL (4.06-5.63); WHITE BLOOD COUNT (AUTO) 4.8 K/uL (3.6-10.2)
[2017-03-09] MEDS: ALBUTEROL SULFATE 2.5 MG/3 ML NEBU NEB SCH ×5 (07:35→20:13)
[2017-03-09] MEDS: IPRATROPIUM BROMIDE 0.5 MG/2.5 ML NEBU NEB SCH ×5 (07:35→20:13)
[2017-03-09] MEDS: ACETYLCYSTEINE 10% 4ML VIAL NEB SCH ×3 (08:23→20:14)
[2017-03-09] MEDS: ASPIRIN EC 81 MG TABLET.DR PO SCH (09:04)
[2017-03-09] MEDS: BETHANECHOL CHLORIDE 25 MG TABLET PO SCH ×3 (09:04→17:00)
[2017-03-09] MEDS: CARBIDOPA/LEVODOPA 25-250MG TABLET PO SCH ×4 (09:05→21:00)
[2017-03-09 11:50] VITALS: BP 109/67
[2017-03-09] MEDS: PIPERACILLIN/TAZOBACTAM/D5W 50 ML IV SCH ×2 (12:11→17:43)
[2017-03-09 16:00] VITALS: BP 136/71
[2017-03-09 20:00] VITALS: BP 133/70
[2017-03-09] MEDS: CARBIDOPA/LEVODOPA CR 25-100MG TABLET.SA PO SCH (21:00)
[2017-03-09] MEDS: ROSUVASTATIN 5 MG PO SCH (21:00)
[2017-03-09] MEDS: [UNRECOGNIZED DRUG - OTHER] PO SCH (21:00)
[2017-03-09] MEDS: METOPROLOL SUCCINATE XL 50 MG TAB.SR.24H PO SCH (21:00)
[2017-03-09] MEDS ORDERED: VANCOMYCIN IV 750 MG in IV DEXTROSE 5% 250 ML IV SCH (23:45)
[2017-03-10] VITALS: BP 121/61
[2017-03-10] MEDS ORDERED: BLOOD SUGAR DIAGNOSTIC 1 EACH STRIP VI SCH
[2017-03-10] MEDS: PIPERACILLIN/TAZOBACTAM/D5W 50 ML IV SCH ×4 (00:40→21:20)
[2017-03-10] MEDS ORDERED: VANCOMYCIN IV 0 ML ONE (01:17)
[2017-03-10] MEDS ORDERED: VANCOMYCIN 1000 MG VIAL ONE (01:21)
[2017-03-10] MEDS: IPRATROPIUM BROMIDE 0.5 MG/2.5 ML NEBU NEB PRN (03:06)
[2017-03-10] MEDS: ALBUTEROL SULFATE 2.5 MG/3 ML NEBU NEB PRN (03:07)
[2017-03-10 04:00] VITALS: BP 120/75
[2017-03-10] MEDS ORDERED: HYDROCODONE/APAP 5-325MG TABLET ONE (04:01)
[2017-03-10] MEDS ORDERED: DEXTROSE 50% 50 ML DISP.SYRIN IV PRN (05:45)
[2017-03-10] MEDS: BLOOD SUGAR DIAGNOSTIC 1 EACH STRIP VI SCH ×3 (06:26→17:18)
[2017-03-10] MEDS: INSULIN REGULAR, HUMAN 300 UNIT/3 ML VIAL SQ PRN ×3 (06:28→17:22)
[2017-03-10] MEDS: PANTOPRAZOLE SODIUM 40 MG TABLET.DR PO SCH (06:50)
[2017-03-10 07:31] LABS: BASOPHILS % (AUTO) 0.1 % (0.0-2.0); HEMATOCRIT 24.9 % (36.7-47.1); HEMOGLOBIN 8.4 g/dL (12.5-16.3); LYMPHOCYTES # (AUTO) 0.2 K/uL (20.0-40.0); LYMPHOCYTES % (AUTO) 6.4 % (20.5-51.5); MEAN CORPUSCULAR HEMOGLOBIN 30.8 uug (23.8-33.4); MEAN CORPUSCULAR HGB CONC 34 g/dL (32.5-36.3); MEAN CORPUSCULAR VOLUME 91.4 fL (73.0-96.2); MONOCYTES # (AUTO) 0.2 K/uL (2.0-10.0); MONOCYTES % (AUTO) 4.4 % (0.0-11.0); NEUTROPHILS # (AUTO) 3.2 K/uL (1.8-8.9); NEUTROPHILS % (AUTO) 89.1 % (38.5-71.5); PLATELET COUNT (AUTO) 191 K/uL (152-348); RED BLOOD CELL COUNT(AUTO) 2.72 MIL/uL (4.06-5.63); WHITE BLOOD COUNT (AUTO) 3.6 K/uL (3.6-10.2)
[2017-03-10] MEDS: IPRATROPIUM BROMIDE 0.5 MG/2.5 ML NEBU NEB SCH ×4 (07:46→22:50)
[2017-03-10] MEDS: ACETYLCYSTEINE 10% 4ML VIAL NEB SCH ×3 (07:46→22:50)
[2017-03-10] MEDS: ALBUTEROL SULFATE 2.5 MG/3 ML NEBU NEB SCH ×4 (07:46→22:50)
[2017-03-10 07:51] LABS: ALANINE AMINOTRANSFERASE 23 U/L (16-63); ALKALINE PHOSPHATASE 40 U/L (50-136); ASPARTATE AMINOTRANSFERASE 46 U/L (15-37); BILIRUBIN,TOTAL 0.4 mg/dL (0.2-1.0); CARBON DIOXIDE 25 mmol/L (21-32); CHLORIDE 108 mmol/L (98-107); CREATININE 1.2 mg/dL (0.6-1.3); FERRITIN 566 ng/mL (26-388); GLUCOSE 184 mg/dL (74-106); MAGNESIUM 1.9 mg/dL (1.8-2.4); PHOSPHOROUS 3.3 mg/dL (2.5-4.9); POTASSIUM 3.4 mmol/L (3.5-5.1); TOTAL PROTEIN, SERUM 6.6 g/dL (6.4-8.2); UREA NITROGEN, BLOOD 23 mg/dL (7-18)
[2017-03-10] MEDS: BETHANECHOL CHLORIDE 25 MG TABLET PO SCH ×3 (09:00→17:00)
[2017-03-10] MEDS: ASPIRIN EC 81 MG TABLET.DR PO SCH (09:00)
[2017-03-10] MEDS: CARBIDOPA/LEVODOPA 25-250MG TABLET PO SCH ×5 (09:00→21:21)
[2017-03-10 09:56] LABS: IRON, SERUM 9 ug/dL (50-175)
[2017-03-10] MEDS: VANCOMYCIN IV 1,250 MG in IV DEXTROSE 5% 500 ML IV SCH (11:29)
[2017-03-10 12:11] VITALS: BP 141/55
[2017-03-10] MEDS: IV NS 1000 ML 1,000 ML IV PRN (12:26)
[2017-03-10 15:38] VITALS: BP 127/65
[2017-03-10] MEDS: POTASSIUM CHLORIDE 50 ML IV SCH ×2 (17:42→18:46)
[2017-03-10 20:00] VITALS: BP 140/71
[2017-03-10] MEDS ORDERED: PIPERACILLIN/TAZOBACTAM/D5W 100 ML IV ONE (20:36)
[2017-03-10] MEDS ORDERED: ATORVASTATIN 10 MG TABLET PO SCH (21:00)
[2017-03-10] MEDS: ROSUVASTATIN 5 MG PO SCH ×2 (21:00→21:20)
[2017-03-10] MEDS: [UNRECOGNIZED DRUG - OTHER] PO SCH ×2 (21:00→21:20)
[2017-03-10] MEDS: METOPROLOL SUCCINATE XL 50 MG TAB.SR.24H PO SCH ×2 (21:00→21:22)
[2017-03-10] MEDS: CARBIDOPA/LEVODOPA CR 25-100MG TABLET.SA PO SCH ×2 (21:00→21:21)
[2017-03-11] MEDS: PIPERACILLIN/TAZOBACTAM/D5W 50 ML IV SCH ×5 (00:27→23:29)
[2017-03-11] MEDS: BLOOD SUGAR DIAGNOSTIC 1 EACH STRIP VI SCH ×5 (00:31→23:34)
[2017-03-11] MEDS: ACETAMINOPHEN 650 MG SUPP.RECT RC PRN (00:59)
[2017-03-11] MEDS: INSULIN REGULAR, HUMAN 300 UNIT/3 ML VIAL SQ PRN ×3 (01:02→17:14)
[2017-03-11] MEDS: VANCOMYCIN IV 1,250 MG in IV DEXTROSE 5% 500 ML IV SCH ×2 (05:28→06:36)
[2017-03-11] MEDS: PANTOPRAZOLE SODIUM 40 MG TABLET.DR PO SCH (06:29)
[2017-03-11 06:48] VITALS: BP 139/69
[2017-03-11] MEDS: ALBUTEROL SULFATE 2.5 MG/3 ML NEBU NEB SCH ×4 (07:25→19:31)
[2017-03-11] MEDS: IPRATROPIUM BROMIDE 0.5 MG/2.5 ML NEBU NEB SCH ×4 (07:25→19:31)
[2017-03-11] MEDS: ACETYLCYSTEINE 10% 4ML VIAL NEB SCH ×3 (07:25→22:27)
[2017-03-11] MEDS: CARBIDOPA/LEVODOPA 25-250MG TABLET PO SCH ×4 (09:00→21:08)
[2017-03-11] MEDS: ASPIRIN EC 81 MG TABLET.DR PO SCH ×2 (09:00→14:00)
[2017-03-11] MEDS: BETHANECHOL CHLORIDE 25 MG TABLET PO SCH ×3 (09:00→17:12)
[2017-03-11 11:51] VITALS: BP 137/68
[2017-03-11] MEDS: IV NS 1000 ML 1,000 ML IV PRN (15:24)
[2017-03-11 15:43] VITALS: BP 111/58
[2017-03-11 19:00] VITALS: BP 131/66
[2017-03-11] MEDS: CARBIDOPA/LEVODOPA CR 25-100MG TABLET.SA PO SCH (21:00)
[2017-03-11] MEDS: METOPROLOL SUCCINATE XL 50 MG TAB.SR.24H PO SCH (21:06)
[2017-03-11] MEDS: LACTOBACILLUS RHAMNOSUS GG 1 EACH CAPSULE PO SCH (21:07)
[2017-03-11] MEDS: [UNRECOGNIZED DRUG - OTHER] PO SCH (21:25)
[2017-03-11] MEDS: ROSUVASTATIN 5 MG PO SCH (21:25)
[2017-03-11] MEDS: IPRATROPIUM BROMIDE 0.5 MG/2.5 ML NEBU NEB PRN (22:27)
[2017-03-11] MEDS: ALBUTEROL SULFATE 2.5 MG/3 ML NEBU NEB PRN (22:27)
[2017-03-12] MEDS: VANCOMYCIN IV 1,250 MG in IV DEXTROSE 5% 500 ML IV SCH ×2 (01:00→08:44)
[2017-03-12 04:00] VITALS: BP 126/65
[2017-03-12] MEDS: BLOOD SUGAR DIAGNOSTIC 1 EACH STRIP VI SCH ×5 (05:19→23:27)
[2017-03-12] MEDS: PIPERACILLIN/TAZOBACTAM/D5W 50 ML IV SCH ×4 (05:20→23:59)
[2017-03-12] MEDS: IV NS 1000 ML 1,000 ML IV PRN (06:35)
[2017-03-12 06:58] LABS: CARBON DIOXIDE 26 mmol/L (21-32); CHLORIDE 113 mmol/L (98-107); CREATININE 1.2 mg/dL (0.6-1.3); GLUCOSE 148 mg/dL (74-106); MAGNESIUM 1.8 mg/dL (1.8-2.4); PHOSPHOROUS 4.1 mg/dL (2.5-4.9); POTASSIUM 3.4 mmol/L (3.5-5.1); UREA NITROGEN, BLOOD 19 mg/dL (7-18)
[2017-03-12] MEDS: PANTOPRAZOLE SODIUM 40 MG TABLET.DR PO SCH (07:00)
[2017-03-12 07:26] LABS: BASOPHILS % (AUTO) 0.3 % (0.0-2.0); EOSINOPHILS % (AUTO) 0.1 % (0.0-7.0); HEMATOCRIT 26.2 % (36.7-47.1); HEMOGLOBIN 8.7 g/dL (12.5-16.3); LYMPHOCYTES # (AUTO) 0.4 K/uL (20.0-40.0); LYMPHOCYTES % (AUTO) 13.8 % (20.5-51.5); MEAN CORPUSCULAR HEMOGLOBIN 30.7 uug (23.8-33.4); MEAN CORPUSCULAR HGB CONC 33 g/dL (32.5-36.3); MONOCYTES # (AUTO) 0.3 K/uL (2.0-10.0); MONOCYTES % (AUTO) 8.5 % (0.0-11.0); NEUTROPHILS # (AUTO) 2.3 K/uL (1.8-8.9); NEUTROPHILS % (AUTO) 77.3 % (38.5-71.5); PLATELET COUNT (AUTO) 179 K/uL (152-348); RED BLOOD CELL COUNT(AUTO) 2.84 MIL/uL (4.06-5.63)
[2017-03-12] MEDS: IPRATROPIUM BROMIDE 0.5 MG/2.5 ML NEBU NEB SCH ×4 (07:52→19:24)
[2017-03-12] MEDS: ACETYLCYSTEINE 10% 4ML VIAL NEB SCH ×3 (07:52→23:19)
[2017-03-12] MEDS: ALBUTEROL SULFATE 2.5 MG/3 ML NEBU NEB SCH ×4 (07:52→19:24)
[2017-03-12] MEDS: CARBIDOPA/LEVODOPA 25-250MG TABLET PO SCH ×3 (08:43→17:00)
[2017-03-12] MEDS: ASPIRIN EC 81 MG TABLET.DR PO SCH (08:43)
[2017-03-12] MEDS: LACTOBACILLUS RHAMNOSUS GG 1 EACH CAPSULE PO SCH (08:43)
[2017-03-12] MEDS: BETHANECHOL CHLORIDE 25 MG TABLET PO SCH ×3 (08:43→17:00)
[2017-03-12] MEDS: CARBIDOPA/LEVODOPA CR 25-100MG TABLET.SA PO SCH (10:39)
[2017-03-12] MEDS: METOPROLOL SUCCINATE XL 50 MG TAB.SR.24H PO SCH (10:39)
[2017-03-12 11:21] VITALS: BP 151/68
[2017-03-12] MEDS: POTASSIUM CHLORIDE 10 MEQ, LIDOCAINE-MPF 1% 1 ML in IV DEXTROSE 5% 100 ML IV SCH ×4 (13:17→16:08)
[2017-03-12 15:06] VITALS: BP 110/65
[2017-03-12 19:00] VITALS: BP 138/75
[2017-03-12] MEDS: ROSUVASTATIN 5 MG PO SCH (21:00)
[2017-03-12] MEDS: [UNRECOGNIZED DRUG - OTHER] PO SCH (21:00)
[2017-03-12] MEDS ORDERED: HYDROCODONE/APAP 5-325MG TABLET NG PRN (22:15)
[2017-03-12] MEDS: LACTOBACILLUS RHAMNOSUS GG 1 EACH CAPSULE NG SCH (22:15)
[2017-03-12] MEDS: CARBIDOPA/LEVODOPA 25-250MG TABLET NG SCH (22:16)
[2017-03-12] MEDS: ALBUTEROL SULFATE 2.5 MG/3 ML NEBU NEB PRN (23:20)
[2017-03-12] MEDS: INSULIN REGULAR, HUMAN 300 UNIT/3 ML VIAL SQ PRN (23:33)
[2017-03-13] MEDS: VANCOMYCIN IV 1,250 MG in IV DEXTROSE 5% 500 ML IV SCH ×2 (04:05→23:48)
[2017-03-13 05:26] VITALS: BP 146/71
[2017-03-13] MEDS: INSULIN REGULAR, HUMAN 300 UNIT/3 ML VIAL SQ PRN (06:44)
[2017-03-13] MEDS: PANTOPRAZOLE SODIUM 40 MG TABLET.DR PO SCH (07:00)
[2017-03-13] MEDS: PIPERACILLIN/TAZOBACTAM/D5W 50 ML IV SCH ×3 (07:06→18:27)
[2017-03-13] MEDS: ALBUTEROL SULFATE 2.5 MG/3 ML NEBU NEB SCH ×4 (07:26→19:23)
[2017-03-13] MEDS: ACETYLCYSTEINE 10% 4ML VIAL NEB SCH ×3 (07:26→22:49)
[2017-03-13] MEDS: IPRATROPIUM BROMIDE 0.5 MG/2.5 ML NEBU NEB SCH ×4 (07:26→19:23)
[2017-03-13 08:44] LABS: BASOPHILS % (AUTO) 0.3 % (0.0-2.0); EOSINOPHILS % (AUTO) 0.1 % (0.0-7.0); HEMATOCRIT 25.6 % (36.7-47.1); HEMOGLOBIN 8.6 g/dL (12.5-16.3); LYMPHOCYTES # (AUTO) 0.5 K/uL (20.0-40.0); LYMPHOCYTES % (AUTO) 14.5 % (20.5-51.5); MEAN CORPUSCULAR HEMOGLOBIN 30.4 uug (23.8-33.4); MEAN CORPUSCULAR HGB CONC 34 g/dL (32.5-36.3); MEAN CORPUSCULAR VOLUME 90.6 fL (73.0-96.2); MONOCYTES # (AUTO) 0.3 K/uL (2.0-10.0); MONOCYTES % (AUTO) 9.9 % (0.0-11.0); NEUTROPHILS # (AUTO) 2.4 K/uL (1.8-8.9); NEUTROPHILS % (AUTO) 75.2 % (38.5-71.5); PLATELET COUNT (AUTO) 189 K/uL (152-348); RED BLOOD CELL COUNT(AUTO) 2.82 MIL/uL (4.06-5.63); WHITE BLOOD COUNT (AUTO) 3.2 K/uL (3.6-10.2)
[2017-03-13 09:19] LABS: CARBON DIOXIDE 25 mmol/L (21-32); CHLORIDE 112 mmol/L (98-107); CREATININE 1.1 mg/dL (0.6-1.3); GLUCOSE 235 mg/dL (74-106); MAGNESIUM 1.8 mg/dL (1.8-2.4); PHOSPHOROUS 3.3 mg/dL (2.5-4.9); UREA NITROGEN, BLOOD 16 mg/dL (7-18)
[2017-03-13] MEDS: BETHANECHOL CHLORIDE 25 MG TABLET NG SCH ×3 (10:40→18:23)
[2017-03-13] MEDS: ASPIRIN EC 81 MG TABLET.DR PO SCH (10:40)
[2017-03-13] MEDS: CARBIDOPA/LEVODOPA 25-250MG TABLET NG SCH ×5 (10:40→21:53)
[2017-03-13] MEDS: LACTOBACILLUS RHAMNOSUS GG 1 EACH CAPSULE NG SCH ×3 (10:40→21:52)
[2017-03-13 11:15] VITALS: BP 153/68
[2017-03-13] MEDS ORDERED: POTASSIUM CHLORIDE 20 MEQ POWDER PACKET GT ONE (11:45)
[2017-03-13] MEDS: BLOOD SUGAR DIAGNOSTIC 1 EACH STRIP VI SCH ×3 (12:42→23:50)
[2017-03-13 15:28] VITALS: BP 163/86
[2017-03-13 20:00] VITALS: BP 107/68
[2017-03-13] MEDS: [UNRECOGNIZED DRUG - OTHER] PO SCH ×2 (21:00→21:55)
[2017-03-13] MEDS: METOPROLOL SUCCINATE XL 50 MG TAB.SR.24H PO SCH (21:00)
[2017-03-13] MEDS: ROSUVASTATIN 5 MG PO SCH ×2 (21:00→21:55)
[2017-03-13] MEDS: CARBIDOPA/LEVODOPA CR 25-100MG TABLET.SA PO SCH (21:00)
[2017-03-13] MEDS: ACETAMINOPHEN 325 MG TABLET NG PRN (21:52)
[2017-03-13] MEDS: IPRATROPIUM BROMIDE 0.5 MG/2.5 ML NEBU NEB PRN (22:49)
[2017-03-13] MEDS: ALBUTEROL SULFATE 2.5 MG/3 ML NEBU NEB PRN (22:49)
[2017-03-14] MEDS: PIPERACILLIN/TAZOBACTAM/D5W 50 ML IV SCH ×4 (00:55→17:03)
[2017-03-14] MEDS: BLOOD SUGAR DIAGNOSTIC 1 EACH STRIP VI SCH ×3 (06:00→17:01)
[2017-03-14 06:03] VITALS: BP 104/66
[2017-03-14] MEDS: PANTOPRAZOLE SODIUM 40 MG TABLET.DR PO SCH (07:00)
[2017-03-14 07:09] LABS: BASOPHILS % (AUTO) 0.3 % (0.0-2.0); EOSINOPHILS % (AUTO) 0.2 % (0.0-7.0); LYMPHOCYTES # (AUTO) 0.4 K/uL (20.0-40.0); LYMPHOCYTES % (AUTO) 11.8 % (20.5-51.5); MEAN CORPUSCULAR HEMOGLOBIN 30.3 uug (23.8-33.4); MEAN CORPUSCULAR HGB CONC 33 g/dL (32.5-36.3); MONOCYTES # (AUTO) 0.3 K/uL (2.0-10.0); MONOCYTES % (AUTO) 7.8 % (0.0-11.0); NEUTROPHILS # (AUTO) 2.9 K/uL (1.8-8.9); NEUTROPHILS % (AUTO) 79.9 % (38.5-71.5); PLATELET COUNT (AUTO) 229 K/uL (152-348); RED BLOOD CELL COUNT(AUTO) 2.97 MIL/uL (4.06-5.63); WHITE BLOOD COUNT (AUTO) 3.6 K/uL (3.6-10.2)
[2017-03-14 07:27] LABS: ALANINE AMINOTRANSFERASE 12 U/L (16-63); ALKALINE PHOSPHATASE 41 U/L (50-136); ASPARTATE AMINOTRANSFERASE 21 U/L (15-37); BILIRUBIN,TOTAL 0.4 mg/dL (0.2-1.0); CARBON DIOXIDE 26 mmol/L (21-32); CHLORIDE 112 mmol/L (98-107); CREATININE 1.2 mg/dL (0.6-1.3); GLUCOSE 186 mg/dL (74-106); MAGNESIUM 1.9 mg/dL (1.8-2.4); PHOSPHOROUS 3.5 mg/dL (2.5-4.9); POTASSIUM 3.2 mmol/L (3.5-5.1); TOTAL PROTEIN, SERUM 6.7 g/dL (6.4-8.2); UREA NITROGEN, BLOOD 15 mg/dL (7-18)
[2017-03-14] MEDS: ALBUTEROL SULFATE 2.5 MG/3 ML NEBU NEB SCH ×4 (08:24→19:48)
[2017-03-14] MEDS: ACETYLCYSTEINE 10% 4ML VIAL NEB SCH ×3 (08:24→23:38)
[2017-03-14] MEDS: IPRATROPIUM BROMIDE 0.5 MG/2.5 ML NEBU NEB SCH ×4 (08:24→19:47)
[2017-03-14] MEDS: ASPIRIN EC 81 MG TABLET.DR PO SCH (08:28)
[2017-03-14] MEDS: CARBIDOPA/LEVODOPA 25-250MG TABLET NG SCH ×4 (08:28→21:00)
[2017-03-14] MEDS: BETHANECHOL CHLORIDE 25 MG TABLET NG SCH ×3 (08:28→16:07)
[2017-03-14] MEDS: LACTOBACILLUS RHAMNOSUS GG 1 EACH CAPSULE NG SCH ×2 (08:28→21:00)
[2017-03-14 11:12] VITALS: BP 118/67
[2017-03-14] MEDS ORDERED: POTASSIUM CHLORIDE 50 ML IV SCH (11:30)
[2017-03-14] MEDS: POTASSIUM CHLORIDE 10 MEQ in IV NORMAL SALINE 50 ML IV SCH ×2 (13:24→14:40)
[2017-03-14 15:10] VITALS: BP 126/66
[2017-03-14] MEDS ORDERED: POTASSIUM CHLORIDE 20 MEQ in IV D5/ 0.9% NACL 1,000 ML IV PRN (18:15)
[2017-03-14] MEDS: VANCOMYCIN IV 1,250 MG in IV DEXTROSE 5% 500 ML IV SCH (19:26)
[2017-03-14] MEDS: METOPROLOL SUCCINATE XL 50 MG TAB.SR.24H PO SCH (21:00)
[2017-03-14] MEDS: CARBIDOPA/LEVODOPA CR 25-100MG TABLET.SA PO SCH (21:00)
[2017-03-14] MEDS: ROSUVASTATIN 5 MG PO SCH (21:00)
[2017-03-14] MEDS: [UNRECOGNIZED DRUG - OTHER] PO SCH (21:00)
[2017-03-14] MEDS: IPRATROPIUM BROMIDE 0.5 MG/2.5 ML NEBU NEB PRN (23:38)
[2017-03-14] MEDS: ALBUTEROL SULFATE 2.5 MG/3 ML NEBU NEB PRN (23:38)
[2017-03-15] MEDS: PIPERACILLIN/TAZOBACTAM/D5W 50 ML IV SCH ×4 (01:01→17:19)
[2017-03-15] MEDS: BLOOD SUGAR DIAGNOSTIC 1 EACH STRIP VI SCH ×5 (02:28→23:50)
[2017-03-15] MEDS: INSULIN REGULAR, HUMAN 300 UNIT/3 ML VIAL SQ PRN ×4 (02:30→17:08)
[2017-03-15 05:51] VITALS: BP 153/68
[2017-03-15] MEDS: PANTOPRAZOLE SODIUM 40 MG TABLET.DR PO SCH (06:56)
[2017-03-15 07:10] LABS: CARBON DIOXIDE 26 mmol/L (21-32); CHLORIDE 115 mmol/L (98-107); CREATININE 1.2 mg/dL (0.6-1.3); GLUCOSE 204 mg/dL (74-106); MAGNESIUM 1.9 mg/dL (1.8-2.4); PHOSPHOROUS 2.8 mg/dL (2.5-4.9); POTASSIUM 2.9 mmol/L (3.5-5.1); UREA NITROGEN, BLOOD 16 mg/dL (7-18)
[2017-03-15 07:14] LABS: BASOPHILS % (AUTO) 0.4 % (0.0-2.0); EOSINOPHILS % (AUTO) 0.6 % (0.0-7.0); HEMATOCRIT 25.8 % (36.7-47.1); HEMOGLOBIN 8.7 g/dL (12.5-16.3); LYMPHOCYTES # (AUTO) 0.4 K/uL (20.0-40.0); LYMPHOCYTES % (AUTO) 10.8 % (20.5-51.5); MEAN CORPUSCULAR HEMOGLOBIN 30.6 uug (23.8-33.4); MEAN CORPUSCULAR HGB CONC 34 g/dL (32.5-36.3); MEAN CORPUSCULAR VOLUME 90.8 fL (73.0-96.2); MONOCYTES # (AUTO) 0.3 K/uL (2.0-10.0); MONOCYTES % (AUTO) 7.6 % (0.0-11.0); NEUTROPHILS # (AUTO) 3.2 K/uL (1.8-8.9); NEUTROPHILS % (AUTO) 80.6 % (38.5-71.5); PLATELET COUNT (AUTO) 264 K/uL (152-348); RED BLOOD CELL COUNT(AUTO) 2.85 MIL/uL (4.06-5.63); WHITE BLOOD COUNT (AUTO) 3.9 K/uL (3.6-10.2)
[2017-03-15] MEDS: IPRATROPIUM BROMIDE 0.5 MG/2.5 ML NEBU NEB SCH ×4 (07:46→20:49)
[2017-03-15] MEDS: ALBUTEROL SULFATE 2.5 MG/3 ML NEBU NEB SCH ×4 (07:46→20:50)
[2017-03-15] MEDS: ACETYLCYSTEINE 10% 4ML VIAL NEB SCH ×3 (07:46→20:51)
[2017-03-15] MEDS: BETHANECHOL CHLORIDE 25 MG TABLET NG SCH ×3 (08:23→16:00)
[2017-03-15] MEDS: CARBIDOPA/LEVODOPA 25-250MG TABLET NG SCH ×4 (08:23→21:00)
[2017-03-15] MEDS: LACTOBACILLUS RHAMNOSUS GG 1 EACH CAPSULE NG SCH ×2 (08:23→21:00)
[2017-03-15] MEDS: ASPIRIN EC 81 MG TABLET.DR PO SCH (08:24)
[2017-03-15] MEDS ORDERED: POTASSIUM CHLORIDE 20 MEQ TAB.PRT.SR PO ONE (08:30)
[2017-03-15] MEDS: ACETAMINOPHEN 650 MG SUPP.RECT RC PRN (08:53)
[2017-03-15] MEDS ORDERED: POTASSIUM CHLORIDE 20 MEQ in IV 1/2NS 1000 ML 1,000 ML IV PRN (09:00)
[2017-03-15 11:06] VITALS: BP 129/66
[2017-03-15] MEDS ORDERED: POTASSIUM CHLORIDE 20 MEQ in IV D5/ 0.9% NACL 1,000 ML IV PRN (11:15)
[2017-03-15] MEDS: VANCOMYCIN IV 1,250 MG in IV DEXTROSE 5% 500 ML IV SCH (12:58)
[2017-03-15 16:05] VITALS: BP 153/63
[2017-03-15 19:00] VITALS: BP 154/59
[2017-03-15] MEDS: ROSUVASTATIN 5 MG PO SCH (21:00)
[2017-03-15] MEDS: CARBIDOPA/LEVODOPA CR 25-100MG TABLET.SA PO SCH (21:00)
[2017-03-15] MEDS: METOPROLOL SUCCINATE XL 50 MG TAB.SR.24H PO SCH (21:00)
[2017-03-15] MEDS: [UNRECOGNIZED DRUG - OTHER] PO SCH (21:00)
[2017-03-16] VITALS: BP 149/75
[2017-03-16] MEDS: INSULIN REGULAR, HUMAN 300 UNIT/3 ML VIAL SQ PRN ×3 (00:03→17:29)
[2017-03-16] MEDS: PIPERACILLIN/TAZOBACTAM/D5W 50 ML IV SCH ×4 (00:07→17:28)
[2017-03-16 04:00] VITALS: BP 162/73
[2017-03-16] MEDS: BLOOD SUGAR DIAGNOSTIC 1 EACH STRIP VI SCH ×3 (06:11→17:26)
[2017-03-16 06:53] LABS: BASOPHILS % (AUTO) 0.3 % (0.0-2.0); EOSINOPHILS # (AUTO) 0.1 K/uL (0.0-0.7); EOSINOPHILS % (AUTO) 1.3 % (0.0-7.0); HEMATOCRIT 26.9 % (36.7-47.1); HEMOGLOBIN 8.9 g/dL (12.5-16.3); LYMPHOCYTES # (AUTO) 0.5 K/uL (20.0-40.0); LYMPHOCYTES % (AUTO) 11.1 % (20.5-51.5); MEAN CORPUSCULAR HEMOGLOBIN 30.1 uug (23.8-33.4); MEAN CORPUSCULAR HGB CONC 33 g/dL (32.5-36.3); MONOCYTES # (AUTO) 0.3 K/uL (2.0-10.0); MONOCYTES % (AUTO) 7.1 % (0.0-11.0); NEUTROPHILS % (AUTO) 80.2 % (38.5-71.5); PLATELET COUNT (AUTO) 295 K/uL (152-348); RED BLOOD CELL COUNT(AUTO) 2.95 MIL/uL (4.06-5.63)
[2017-03-16] MEDS: PANTOPRAZOLE SODIUM 40 MG TABLET.DR PO SCH (07:00)
[2017-03-16 07:10] LABS: WHITE BLOOD COUNT (AUTO) 4.9 K/uL (3.6-10.2)
[2017-03-16 07:11] LABS: ALANINE AMINOTRANSFERASE 22 U/L (16-63); ALKALINE PHOSPHATASE 40 U/L (50-136); ASPARTATE AMINOTRANSFERASE 16 U/L (15-37); BILIRUBIN,TOTAL 0.3 mg/dL (0.2-1.0); CARBON DIOXIDE 27 mmol/L (21-32); CHLORIDE 117 mmol/L (98-107); CREATININE 1.1 mg/dL (0.6-1.3); GLUCOSE 180 mg/dL (74-106); PHOSPHOROUS 3.1 mg/dL (2.5-4.9); POTASSIUM 2.9 mmol/L (3.5-5.1); TOTAL PROTEIN, SERUM 6.5 g/dL (6.4-8.2); UREA NITROGEN, BLOOD 13 mg/dL (7-18)
[2017-03-16] MEDS: ALBUTEROL SULFATE 2.5 MG/3 ML NEBU NEB SCH ×4 (07:28→22:30)
[2017-03-16] MEDS: IPRATROPIUM BROMIDE 0.5 MG/2.5 ML NEBU NEB SCH ×4 (07:28→22:30)
[2017-03-16] MEDS: ACETYLCYSTEINE 10% 4ML VIAL NEB SCH ×3 (07:28→22:30)
[2017-03-16] MEDS: ACETAMINOPHEN 650 MG SUPP.RECT RC PRN (07:36)
[2017-03-16] MEDS: LACTOBACILLUS RHAMNOSUS GG 1 EACH CAPSULE NG SCH ×3 (08:19→22:20)
[2017-03-16] MEDS: BETHANECHOL CHLORIDE 25 MG TABLET NG SCH ×3 (08:19→15:57)
[2017-03-16] MEDS: ASPIRIN EC 81 MG TABLET.DR PO SCH ×2 (08:19→15:57)
[2017-03-16] MEDS: CARBIDOPA/LEVODOPA 25-250MG TABLET NG SCH ×4 (08:19→22:21)
[2017-03-16] MEDS ORDERED: IV NORMAL SALINE 1000 ML BAG IV ONE (09:57)
[2017-03-16] MEDS ORDERED: ETOMIDATE 20 MG/10 ML VIAL MC ONE (09:57)
[2017-03-16] MEDS ORDERED: POTASSIUM CHLORIDE 50 ML IV SCH (11:15)
[2017-03-16 11:56] VITALS: BP 137/70
[2017-03-16] MEDS: POTASSIUM CHLORIDE 10 MEQ in IV DEXTROSE 5% 50 ML IV SCH ×2 (13:32→14:01)
[2017-03-16 13:50] VITALS: BP 161/70
[2017-03-16] MEDS ORDERED: DIABETICSOURCE AC 1000ML LIQUID GT PRN ×2 (14:45→15:45)
[2017-03-16 15:34] VITALS: BP 162/77
[2017-03-16] MEDS ORDERED: IV LACTATED RINGERS SOLUTION 1,000 ML IV PRN (15:45)
[2017-03-16] MEDS: ACETAMINOPHEN 325 MG TABLET NG PRN (15:57)
[2017-03-16] MEDS: DIABETICSOURCE AC 1000ML LIQUID GT PRN (16:14)
[2017-03-16] MEDS: ENALAPRIL 5 MG TABLET PEG SCH (18:24)
[2017-03-16 20:00] VITALS: BP 147/78
[2017-03-16] MEDS: CARBIDOPA/LEVODOPA CR 25-100MG TABLET.SA PO SCH (21:00)
[2017-03-16] MEDS: METOPROLOL SUCCINATE XL 50 MG TAB.SR.24H PO SCH (22:25)
[2017-03-16] MEDS: [UNRECOGNIZED DRUG - OTHER] PO SCH (22:27)
[2017-03-16] MEDS: ROSUVASTATIN 5 MG PO SCH (22:27)
[2017-03-17] MEDS: PIPERACILLIN/TAZOBACTAM/D5W 50 ML IV SCH ×4 (00:09→17:03)
[2017-03-17] MEDS: BLOOD SUGAR DIAGNOSTIC 1 EACH STRIP VI SCH ×4 (00:15→17:00)
[2017-03-17] MEDS: INSULIN REGULAR, HUMAN 300 UNIT/3 ML VIAL SQ PRN ×4 (00:21→17:04)
[2017-03-17 04:00] VITALS: BP 158/76
[2017-03-17] MEDS: ENALAPRIL 5 MG TABLET PEG SCH ×2 (05:31→17:00)
[2017-03-17] MEDS: PANTOPRAZOLE SODIUM 40 MG TABLET.DR PO SCH (06:00)
[2017-03-17 07:01] LABS: BASOPHILS % (AUTO) 0.3 % (0.0-2.0); EOSINOPHILS % (AUTO) 0.6 % (0.0-7.0); HEMATOCRIT 28.4 % (36.7-47.1); HEMOGLOBIN 9.5 g/dL (12.5-16.3); LYMPHOCYTES # (AUTO) 0.5 K/uL (20.0-40.0); LYMPHOCYTES % (AUTO) 6.7 % (20.5-51.5); MEAN CORPUSCULAR HEMOGLOBIN 30.3 uug (23.8-33.4); MEAN CORPUSCULAR HGB CONC 33 g/dL (32.5-36.3); MEAN CORPUSCULAR VOLUME 90.8 fL (73.0-96.2); MONOCYTES # (AUTO) 0.4 K/uL (2.0-10.0); MONOCYTES % (AUTO) 6.1 % (0.0-11.0); NEUTROPHILS # (AUTO) 5.8 K/uL (1.8-8.9); NEUTROPHILS % (AUTO) 86.3 % (38.5-71.5); PLATELET COUNT (AUTO) 322 K/uL (152-348); RED BLOOD CELL COUNT(AUTO) 3.13 MIL/uL (4.06-5.63)
[2017-03-17 07:15] LABS: WHITE BLOOD COUNT (AUTO) 6.8 K/uL (3.6-10.2)
[2017-03-17 07:29] LABS: ALANINE AMINOTRANSFERASE 10 U/L (16-63); ALKALINE PHOSPHATASE 45 U/L (50-136); ASPARTATE AMINOTRANSFERASE 15 U/L (15-37); BILIRUBIN,TOTAL 0.4 mg/dL (0.2-1.0); CARBON DIOXIDE 28 mmol/L (21-32); CHLORIDE 117 mmol/L (98-107); CREATININE 1.2 mg/dL (0.6-1.3); GLUCOSE 211 mg/dL (74-106); PHOSPHOROUS 3.3 mg/dL (2.5-4.9); POTASSIUM 2.9 mmol/L (3.5-5.1); TOTAL PROTEIN, SERUM 6.9 g/dL (6.4-8.2); UREA NITROGEN, BLOOD 18 mg/dL (7-18)
[2017-03-17] MEDS: IPRATROPIUM BROMIDE 0.5 MG/2.5 ML NEBU NEB SCH ×4 (07:46→19:03)
[2017-03-17] MEDS: ALBUTEROL SULFATE 2.5 MG/3 ML NEBU NEB SCH ×4 (07:46→19:03)
[2017-03-17] MEDS: ACETYLCYSTEINE 10% 4ML VIAL NEB SCH ×3 (07:46→19:03)
[2017-03-17 08:06] LABS: *BILIRUBIN,URIN 1+ (NEGATIVE); *BLOOD, URINE 3+ (NEGATIVE); *CLARITY,URINE TURBID (CLEAR); *COLOR,URINE Brown (YELLOW); *KETONES,URINE TRACE (NEGATIVE); *PROTEIN,URINE 2+ (NEGATIVE); *UROBILINOGEN,URINE 0.2 E.U./dl (NORMAL); LEUKOCYTE ESTERASE ,URINE 1+ (NEGATIVE); NITRITE, URINE NEGATIVE (NEGATIVE); PH,URINE 5.5 (5.0-8.0); UGLUCOSE NEGATIVE (NEGATIVE)
[2017-03-17] MEDS: CARBIDOPA/LEVODOPA 25-250MG TABLET NG SCH ×4 (08:10→22:16)
[2017-03-17] MEDS: BETHANECHOL CHLORIDE 25 MG TABLET NG SCH ×3 (08:10→16:09)
[2017-03-17] MEDS: LACTOBACILLUS RHAMNOSUS GG 1 EACH CAPSULE NG SCH ×2 (08:10→22:11)
[2017-03-17] MEDS: ASPIRIN EC 81 MG TABLET.DR PO SCH (08:10)
[2017-03-17 08:57] LABS: RBC,URINE TNTC /HPF (0-3)
[2017-03-17 08:58] LABS: BACTERIA,URINE NONE SEEN /HPF (NONE SEEN); SQUAMOUS EPITHELIAL CELL,UR FEW /HPF (NONE SEEN); WBC,URINE 20-50 /HPF (0-3); YEAST,URINE MODERATE /HPF (NONE SEEN)
[2017-03-17 08:59] LABS: URIC ACID CRYSTALS,URINE MODERATE /HPF (NONE SEEN)
[2017-03-17 11:32] VITALS: BP 145/69
[2017-03-17] MEDS: FLUCONAZOLE 100 MG TABLET GT SCH (12:02)
[2017-03-17] MEDS: ACETAMINOPHEN 325 MG TABLET NG PRN ×2 (12:02→17:00)
[2017-03-17] MEDS ORDERED: POTASSIUM CHLORIDE 20 MEQ in IV 1/2NS 1000 ML 1,000 ML IV PRN (12:30)
[2017-03-17] MEDS: POTASSIUM CHLORIDE 50 ML IV SCH ×2 (12:41→13:36)
[2017-03-17 15:45] VITALS: BP 146/78
[2017-03-17 20:00] VITALS: BP 145/78
[2017-03-17] MEDS: CARBIDOPA/LEVODOPA CR 25-100MG TABLET.SA PO SCH (21:00)
[2017-03-17] MEDS: METOPROLOL SUCCINATE XL 50 MG TAB.SR.24H PO SCH (22:12)
[2017-03-17] MEDS: DIABETICSOURCE AC 1000ML LIQUID GT PRN (22:13)
[2017-03-17] MEDS: ROSUVASTATIN 5 MG PO SCH (22:15)
[2017-03-17] MEDS: [UNRECOGNIZED DRUG - OTHER] PO SCH (22:15)
[2017-03-18] MEDS: PIPERACILLIN/TAZOBACTAM/D5W 50 ML IV SCH ×4 (00:29→17:18)
[2017-03-18] MEDS: BLOOD SUGAR DIAGNOSTIC 1 EACH STRIP VI SCH ×4 (00:34→17:22)
[2017-03-18] MEDS: INSULIN REGULAR, HUMAN 300 UNIT/3 ML VIAL SQ PRN ×4 (00:39→17:34)
[2017-03-18] MEDS: ACETAMINOPHEN 325 MG TABLET NG PRN ×3 (05:36→21:14)
[2017-03-18] MEDS: ENALAPRIL 5 MG TABLET PEG SCH ×2 (05:40→17:22)
[2017-03-18] MEDS: PANTOPRAZOLE SODIUM 40 MG TABLET.DR PO SCH (06:04)
[2017-03-18 06:07] VITALS: BP 155/82
[2017-03-18] MEDS: ALBUTEROL SULFATE 2.5 MG/3 ML NEBU NEB SCH ×4 (07:14→19:27)
[2017-03-18] MEDS: ACETYLCYSTEINE 10% 4ML VIAL NEB SCH ×3 (07:15→22:38)
[2017-03-18] MEDS: IPRATROPIUM BROMIDE 0.5 MG/2.5 ML NEBU NEB SCH ×4 (07:15→19:27)
[2017-03-18 07:19] LABS: BASOPHILS % (AUTO) 0.2 % (0.0-2.0); EOSINOPHILS % (AUTO) 0.4 % (0.0-7.0); HEMATOCRIT 28.3 % (36.7-47.1); HEMOGLOBIN 9.5 g/dL (12.5-16.3); LYMPHOCYTES # (AUTO) 0.5 K/uL (20.0-40.0); LYMPHOCYTES % (AUTO) 4.3 % (20.5-51.5); MEAN CORPUSCULAR HEMOGLOBIN 30.8 uug (23.8-33.4); MEAN CORPUSCULAR HGB CONC 34 g/dL (32.5-36.3); MEAN CORPUSCULAR VOLUME 91.3 fL (73.0-96.2); MONOCYTES # (AUTO) 0.5 K/uL (2.0-10.0); MONOCYTES % (AUTO) 4.9 % (0.0-11.0); NEUTROPHILS # (AUTO) 9.7 K/uL (1.8-8.9); NEUTROPHILS % (AUTO) 90.2 % (38.5-71.5); PLATELET COUNT (AUTO) 317 K/uL (152-348)
[2017-03-18 07:28] LABS: ALANINE AMINOTRANSFERASE 12 U/L (16-63); ALKALINE PHOSPHATASE 44 U/L (50-136); ASPARTATE AMINOTRANSFERASE 18 U/L (15-37); BILIRUBIN,TOTAL 0.4 mg/dL (0.2-1.0); CARBON DIOXIDE 28 mmol/L (21-32); CHLORIDE 116 mmol/L (98-107); CREATININE 1.4 mg/dL (0.6-1.3); MAGNESIUM 2.1 mg/dL (1.8-2.4); PHOSPHOROUS 2.7 mg/dL (2.5-4.9); POTASSIUM 2.9 mmol/L (3.5-5.1); TOTAL PROTEIN, SERUM 6.8 g/dL (6.4-8.2); UREA NITROGEN, BLOOD 27 mg/dL (7-18)
[2017-03-18 07:31] LABS: WHITE BLOOD COUNT (AUTO) 10.8 K/uL (3.6-10.2)
[2017-03-18] MEDS: FLUCONAZOLE 100 MG TABLET GT SCH (08:25)
[2017-03-18] MEDS: LACTOBACILLUS RHAMNOSUS GG 1 EACH CAPSULE NG SCH ×2 (08:25→21:14)
[2017-03-18] MEDS: BETHANECHOL CHLORIDE 25 MG TABLET NG SCH ×3 (08:25→16:05)
[2017-03-18] MEDS: CARBIDOPA/LEVODOPA 25-250MG TABLET NG SCH ×4 (08:28→21:16)
[2017-03-18 08:39] LABS: GLUCOSE 302 mg/dL (74-106)
[2017-03-18] MEDS ORDERED: IV NORMAL SALINE 500 ML IV ONE (11:00)
[2017-03-18] MEDS ORDERED: POTASSIUM CHLORIDE 20 MEQ POWDER PACKET GT ONE (11:30)
[2017-03-18 11:33] VITALS: BP 151/71
[2017-03-18] MEDS: ASPIRIN EC 81 MG TABLET.DR PO SCH (12:03)
[2017-03-18] MEDS ORDERED: D5W IV PRN (12:15)
[2017-03-18] MEDS ORDERED: POTASSIUM CHLORIDE IV PRN (12:15)
[2017-03-18 15:16] VITALS: BP 132/64
[2017-03-18] MEDS ORDERED: FUROSEMIDE 20 MG/2 ML VIAL IV ONE (18:15)
[2017-03-18 20:00] VITALS: BP 131/71
[2017-03-18] MEDS: METOPROLOL SUCCINATE XL 50 MG TAB.SR.24H PO SCH (21:15)
[2017-03-18] MEDS: CARBIDOPA/LEVODOPA CR 25-100MG TABLET.SA PO SCH (21:15)
[2017-03-18] MEDS: [UNRECOGNIZED DRUG - OTHER] PO SCH (21:18)
[2017-03-18] MEDS: ROSUVASTATIN 5 MG PO SCH (21:18)
[2017-03-18] MEDS: IPRATROPIUM BROMIDE 0.5 MG/2.5 ML NEBU NEB PRN (22:38)
[2017-03-19] MEDS: PIPERACILLIN/TAZOBACTAM/D5W 50 ML IV SCH ×5 (00:29→23:41)
[2017-03-19] MEDS: BLOOD SUGAR DIAGNOSTIC 1 EACH STRIP VI SCH ×5 (00:37→23:54)
[2017-03-19] MEDS: INSULIN REGULAR, HUMAN 300 UNIT/3 ML VIAL SQ PRN ×5 (00:43→23:59)
[2017-03-19] MEDS: ALBUTEROL SULFATE 2.5 MG/3 ML NEBU NEB PRN (04:24)
[2017-03-19] MEDS: IPRATROPIUM BROMIDE 0.5 MG/2.5 ML NEBU NEB PRN (04:24)
[2017-03-19 06:03] VITALS: BP 159/83
[2017-03-19] MEDS: ENALAPRIL 5 MG TABLET PEG SCH ×2 (06:10→17:00)
[2017-03-19] MEDS: PANTOPRAZOLE SODIUM 40 MG TABLET.DR PO SCH (07:18)
[2017-03-19] MEDS: ALBUTEROL SULFATE 2.5 MG/3 ML NEBU NEB SCH ×4 (07:45→23:07)
[2017-03-19] MEDS: IPRATROPIUM BROMIDE 0.5 MG/2.5 ML NEBU NEB SCH ×4 (07:46→23:07)
[2017-03-19] MEDS: ACETYLCYSTEINE 10% 4ML VIAL NEB SCH (07:47)
[2017-03-19] MEDS: LACTOBACILLUS RHAMNOSUS GG 1 EACH CAPSULE NG SCH (08:22)
[2017-03-19] MEDS: BETHANECHOL CHLORIDE 25 MG TABLET NG SCH (08:23)
[2017-03-19] MEDS: CARBIDOPA/LEVODOPA 25-250MG TABLET NG SCH (08:23)
[2017-03-19] MEDS: FLUCONAZOLE 100 MG TABLET GT SCH (08:23)
[2017-03-19] MEDS: ASPIRIN EC 81 MG TABLET.DR PO SCH (08:23)
[2017-03-19 08:47] LABS: BASOPHILS % (AUTO) 0.2 % (0.0-2.0); EOSINOPHILS % (AUTO) 0.3 % (0.0-7.0); HEMATOCRIT 29.5 % (36.7-47.1); HEMOGLOBIN 9.6 g/dL (12.5-16.3); LYMPHOCYTES # (AUTO) 0.8 K/uL (20.0-40.0); LYMPHOCYTES % (AUTO) 6.4 % (20.5-51.5); MEAN CORPUSCULAR HEMOGLOBIN 29.7 uug (23.8-33.4); MEAN CORPUSCULAR HGB CONC 33 g/dL (32.5-36.3); MONOCYTES # (AUTO) 0.5 K/uL (2.0-10.0); NEUTROPHILS # (AUTO) 10.6 K/uL (1.8-8.9); NEUTROPHILS % (AUTO) 89.1 % (38.5-71.5); PLATELET COUNT (AUTO) 321 K/uL (152-348); RED BLOOD CELL COUNT(AUTO) 3.24 MIL/uL (4.06-5.63); WHITE BLOOD COUNT (AUTO) 11.9 K/uL (3.6-10.2)
[2017-03-19 09:02] LABS: ALANINE AMINOTRANSFERASE 9 U/L (16-63); ALKALINE PHOSPHATASE 43 U/L (50-136); ASPARTATE AMINOTRANSFERASE 15 U/L (15-37); BILIRUBIN,TOTAL 0.4 mg/dL (0.2-1.0); CARBON DIOXIDE 31 mmol/L (21-32); CHLORIDE 118 mmol/L (98-107); CREATININE 1.4 mg/dL (0.6-1.3); GLUCOSE 297 mg/dL (74-106); MAGNESIUM 2.2 mg/dL (1.8-2.4); PHOSPHOROUS 2.7 mg/dL (2.5-4.9); POTASSIUM 2.9 mmol/L (3.5-5.1); TOTAL PROTEIN, SERUM 7.1 g/dL (6.4-8.2); UREA NITROGEN, BLOOD 26 mg/dL (7-18)
[2017-03-19] MEDS: ACETAMINOPHEN 325 MG TABLET NG PRN (09:53)
[2017-03-19 11:16] VITALS: BP 133/69
[2017-03-19] MEDS ORDERED: SITAGLIPTIN PHOSPHATE 50 MG TABLET PO SCH (12:15)
[2017-03-19] MEDS: BETHANECHOL CHLORIDE 25 MG TABLET GT SCH ×2 (12:42→16:38)
[2017-03-19] MEDS: CARBIDOPA/LEVODOPA 25-250MG TABLET GT SCH ×3 (12:43→20:53)
[2017-03-19] MEDS: glipiZIDE 5 MG TABLET GT SCH ×2 (12:49→16:39)
[2017-03-19] MEDS: LINAGLIPTIN 5 MG TABLET PO SCH (12:49)
[2017-03-19] MEDS: METOPROLOL TARTRATE 50 MG TABLET GT SCH ×2 (12:49→20:53)
[2017-03-19] MEDS ORDERED: FUROSEMIDE 20 MG/2 ML VIAL IV ONE (14:15)
[2017-03-19 15:00] LABS: ABG BASE EXCESS 8.1 mmol/L; ABG HCO3 31.2 mmol/L; ABG PCO2 37.6 mmHg (35.0-45.0); ABG PH 7.537 (7.350-7.450); ABG PO2 69.9 mmHg (75.0-100.0); ABG SITE RIGHT RADIAL; COHb 0.8 % (0.5-1.5); MetHb 0.2 % (0.0-1.5); O2Hb 93.4 % (94.0-97.0)
[2017-03-19 15:28] VITALS: BP 131/72
[2017-03-19 19:00] VITALS: BP 124/68
[2017-03-19] MEDS: [UNRECOGNIZED DRUG - OTHER] PO SCH (20:54)
[2017-03-19] MEDS: ROSUVASTATIN 5 MG PO SCH (20:54)
[2017-03-19] MEDS: CARBIDOPA/LEVODOPA CR 25-100MG TABLET.SA PO SCH (20:54)
[2017-03-19] MEDS: LACTOBACILLUS RHAMNOSUS GG 1 EACH CAPSULE GT SCH (20:54)
[2017-03-20] VITALS: BP 121/54
[2017-03-20 04:00] VITALS: BP 127/64
[2017-03-20] MEDS: BLOOD SUGAR DIAGNOSTIC 1 EACH STRIP VI SCH ×3 (05:22→17:18)
[2017-03-20] MEDS: PIPERACILLIN/TAZOBACTAM/D5W 50 ML IV SCH ×3 (05:24→17:25)
[2017-03-20] MEDS: ENALAPRIL 5 MG TABLET PEG SCH ×2 (05:44→17:15)
[2017-03-20] MEDS: PANTOPRAZOLE ORAL SUSPENSION 40 MG SUSPDR.PKT GT SCH (05:44)
[2017-03-20] MEDS: glipiZIDE 5 MG TABLET GT SCH ×2 (06:34→17:15)
[2017-03-20] MEDS: INSULIN REGULAR, HUMAN 300 UNIT/3 ML VIAL SQ PRN ×3 (06:44→17:20)
[2017-03-20 06:56] LABS: ALANINE AMINOTRANSFERASE 6 U/L (16-63); ALKALINE PHOSPHATASE 45 U/L (50-136); ASPARTATE AMINOTRANSFERASE 17 U/L (15-37); BILIRUBIN,TOTAL 0.3 mg/dL (0.2-1.0); CARBON DIOXIDE 31 mmol/L (21-32); CHLORIDE 118 mmol/L (98-107); CREATININE 1.5 mg/dL (0.6-1.3); MAGNESIUM 2.3 mg/dL (1.8-2.4); PHOSPHOROUS 2.9 mg/dL (2.5-4.9); POTASSIUM 3.1 mmol/L (3.5-5.1); TOTAL PROTEIN, SERUM 7.1 g/dL (6.4-8.2); UREA NITROGEN, BLOOD 34 mg/dL (7-18)
[2017-03-20 07:01] LABS: GLUCOSE 387 mg/dL (74-106)
[2017-03-20 07:04] LABS: BASOPHILS % (AUTO) 0.2 % (0.0-2.0); EOSINOPHILS # (AUTO) 0.1 K/uL (0.0-0.7); EOSINOPHILS % (AUTO) 0.7 % (0.0-7.0); HEMATOCRIT 28.8 % (36.7-47.1); HEMOGLOBIN 9.5 g/dL (12.5-16.3); LYMPHOCYTES # (AUTO) 0.6 K/uL (20.0-40.0); LYMPHOCYTES % (AUTO) 6.8 % (20.5-51.5); MEAN CORPUSCULAR HEMOGLOBIN 30.4 uug (23.8-33.4); MEAN CORPUSCULAR HGB CONC 33 g/dL (32.5-36.3); MONOCYTES # (AUTO) 0.5 K/uL (2.0-10.0); NEUTROPHILS # (AUTO) 8.3 K/uL (1.8-8.9); NEUTROPHILS % (AUTO) 87.3 % (38.5-71.5); PLATELET COUNT (AUTO) 297 K/uL (152-348); RED BLOOD CELL COUNT(AUTO) 3.13 MIL/uL (4.06-5.63); WHITE BLOOD COUNT (AUTO) 9.5 K/uL (3.6-10.2)
[2017-03-20] MEDS: IPRATROPIUM BROMIDE 0.5 MG/2.5 ML NEBU NEB SCH ×4 (07:32→19:01)
[2017-03-20] MEDS: ALBUTEROL SULFATE 2.5 MG/3 ML NEBU NEB SCH ×4 (07:32→19:02)
[2017-03-20] MEDS: BETHANECHOL CHLORIDE 25 MG TABLET GT SCH ×3 (08:33→17:15)
[2017-03-20] MEDS: ASPIRIN 81 MG TAB.CHEW GT SCH (08:33)
[2017-03-20] MEDS: METOPROLOL TARTRATE 50 MG TABLET GT SCH ×2 (08:33→20:39)
[2017-03-20] MEDS: CARBIDOPA/LEVODOPA 25-250MG TABLET GT SCH ×4 (08:33→20:38)
[2017-03-20] MEDS: LINAGLIPTIN 5 MG TABLET PO SCH (08:33)
[2017-03-20] MEDS: FLUCONAZOLE 100 MG TABLET GT SCH (08:33)
[2017-03-20] MEDS: LACTOBACILLUS RHAMNOSUS GG 1 EACH CAPSULE GT SCH ×2 (08:34→20:39)
[2017-03-20 11:31] VITALS: BP 126/71
[2017-03-20] MEDS ORDERED: POTASSIUM CHLORIDE 20 MEQ POWDER PACKET GT ONE (12:00)
[2017-03-20] MEDS ORDERED: SITAGLIPTIN PHOSPHATE 50 MG TABLET GT SCH (12:00)
[2017-03-20] MEDS ORDERED: BISACODYL 5 MG TABLET.DR PO ONE (15:30)
[2017-03-20] MEDS ORDERED: MAGNESIUM CITRATE 296 ML BOTTLE PO ONE (15:30)
[2017-03-20 16:12] VITALS: BP 126/61
[2017-03-20] MEDS: POTASSIUM CHLORIDE 20 MEQ in IV 1/2NS 1000 ML 1,000 ML IV PRN (17:25)
[2017-03-20] MEDS: ROSUVASTATIN 5 MG PO SCH (20:37)
[2017-03-20] MEDS: [UNRECOGNIZED DRUG - OTHER] PO SCH (20:37)
[2017-03-20] MEDS: CARBIDOPA/LEVODOPA CR 25-100MG TABLET.SA PO SCH (20:39)
[2017-03-20 20:57] VITALS: BP 111/57
[2017-03-20] MEDS ORDERED: INSULIN DETEMIR 300 UNIT/3 ML CARTRIDGE SQ SCH (23:00)
[2017-03-21] VITALS (19 sets, daily range): BP systolic 119–150; BP diastolic 62–103
[2017-03-21] MEDS: BLOOD SUGAR DIAGNOSTIC 1 EACH STRIP VI SCH ×5 (00:11→23:54)
[2017-03-21] MEDS: DIABETICSOURCE AC 1000ML LIQUID GT PRN (02:52)
[2017-03-21] MEDS: ENALAPRIL 5 MG TABLET PEG SCH ×3 (05:01→17:17)
[2017-03-21] MEDS: PANTOPRAZOLE ORAL SUSPENSION 40 MG SUSPDR.PKT GT SCH ×2 (05:01→06:00)
[2017-03-21 05:43] LABS: BASOPHILS % (AUTO) 0.6 % (0.0-2.0); EOSINOPHILS # (AUTO) 0.1 K/uL (0.0-0.7); EOSINOPHILS % (AUTO) 1.4 % (0.0-7.0); HEMATOCRIT 29.9 % (36.7-47.1); HEMOGLOBIN 9.7 g/dL (12.5-16.3); LYMPHOCYTES # (AUTO) 0.9 K/uL (20.0-40.0); LYMPHOCYTES % (AUTO) 11.8 % (20.5-51.5); MEAN CORPUSCULAR HEMOGLOBIN 29.7 uug (23.8-33.4); MEAN CORPUSCULAR HGB CONC 32 g/dL (32.5-36.3); MEAN CORPUSCULAR VOLUME 92.1 fL (73.0-96.2); MONOCYTES # (AUTO) 0.5 K/uL (2.0-10.0); MONOCYTES % (AUTO) 6.3 % (0.0-11.0); NEUTROPHILS # (AUTO) 5.9 K/uL (1.8-8.9); NEUTROPHILS % (AUTO) 79.9 % (38.5-71.5); PLATELET COUNT (AUTO) 295 K/uL (152-348); RED BLOOD CELL COUNT(AUTO) 3.25 MIL/uL (4.06-5.63); WHITE BLOOD COUNT (AUTO) 7.3 K/uL (3.6-10.2)
[2017-03-21 06:03] LABS: ALANINE AMINOTRANSFERASE 15 U/L (16-63); ALKALINE PHOSPHATASE 52 U/L (50-136); ASPARTATE AMINOTRANSFERASE 26 U/L (15-37); BILIRUBIN,TOTAL 0.3 mg/dL (0.2-1.0); CARBON DIOXIDE 32 mmol/L (21-32); CHLORIDE 120 mmol/L (98-107); CREATININE 1.6 mg/dL (0.6-1.3); MAGNESIUM 2.5 mg/dL (1.8-2.4); PHOSPHOROUS 2.8 mg/dL (2.5-4.9); POTASSIUM 3.4 mmol/L (3.5-5.1); TOTAL PROTEIN, SERUM 7.2 g/dL (6.4-8.2); UREA NITROGEN, BLOOD 44 mg/dL (7-18)
[2017-03-21 06:21] LABS: GLUCOSE 358 mg/dL (74-106)
[2017-03-21] MEDS: glipiZIDE 5 MG TABLET GT SCH ×2 (07:30→17:15)
[2017-03-21] MEDS: ALBUTEROL SULFATE 2.5 MG/3 ML NEBU NEB SCH ×4 (07:36→19:17)
[2017-03-21] MEDS: IPRATROPIUM BROMIDE 0.5 MG/2.5 ML NEBU NEB SCH ×4 (07:36→19:17)
[2017-03-21] MEDS: POTASSIUM CHLORIDE 20 MEQ in IV 1/2NS 1000 ML 1,000 ML IV PRN (07:41)
[2017-03-21] MEDS: INSULIN REGULAR, HUMAN 300 UNIT/3 ML VIAL SQ PRN ×5 (07:45→23:57)
[2017-03-21] MEDS: LACTOBACILLUS RHAMNOSUS GG 1 EACH CAPSULE GT SCH ×2 (08:23→20:32)
[2017-03-21] MEDS: FLUCONAZOLE 100 MG TABLET GT SCH (08:24)
[2017-03-21] MEDS: METOPROLOL TARTRATE 50 MG TABLET GT SCH ×2 (08:24→20:32)
[2017-03-21] MEDS: ASPIRIN 81 MG TAB.CHEW GT SCH ×2 (08:24→08:34)
[2017-03-21] MEDS: CARBIDOPA/LEVODOPA 25-250MG TABLET GT SCH ×4 (08:24→20:32)
[2017-03-21] MEDS: MORPHINE SULFATE 4 MG/1 ML DISP.SYRIN IV PRN ×2 (08:26→12:23)
[2017-03-21] MEDS: ACETAMINOPHEN 325 MG TABLET GT PRN (08:43)
[2017-03-21] MEDS: BETHANECHOL CHLORIDE 25 MG TABLET GT SCH ×3 (08:43→17:16)
[2017-03-21] MEDS: LINAGLIPTIN 5 MG TABLET PO SCH (08:44)
[2017-03-21] MEDS ORDERED: INSULIN REGULAR, HUMAN 300 UNIT/3 ML VIAL SQ PRN (08:45)
[2017-03-21] MEDS ORDERED: DEXTROSE 50% 50 ML DISP.SYRIN IV PRN ×2 (08:45→12:30)
[2017-03-21] MEDS ORDERED: INSULIN REGULAR, HUMAN 300 UNITS/3 ML VIAL SQ PRN (08:45)
[2017-03-21] MEDS: POTASSIUM CHLORIDE 10 MEQ in IV D5W 1000ML 1,000 ML IV PRN ×2 (09:51→21:36)
[2017-03-21] MEDS ORDERED: BLOOD SUGAR DIAGNOSTIC 1 EACH STRIP VI SCH (11:30)
[2017-03-21 11:59] LABS: ABG BASE EXCESS 7.5 mmol/L; ABG HCO3 31.6 mmol/L; ABG PH 7.484 (7.350-7.450); ABG PO2 64.6 mmHg (75.0-100.0); ABG SITE RIGHT RADIAL; ABG TOTAL HEMOGLOBIN 8.1 G/dL (13.5-18.0); COHb 1.2 % (0.5-1.5); MetHb 0.2 % (0.0-1.5); O2Hb 90.8 % (94.0-97.0)
[2017-03-21] MEDS ORDERED: PIPERACILLIN/TAZOBACTAM/D5W 2.25 G in PREMIXED 1 EACH IV SCH (12:00)
[2017-03-21] MEDS: MEROPENEM 500 MG in IV NORMAL SALINE 50 ML IV SCH (13:21)
[2017-03-21] MEDS ORDERED: VANCOMYCIN IV 1,250 MG in IV DEXTROSE 5% 500 ML IV ONE (14:00)
[2017-03-21] MEDS: INSULIN DETEMIR 300 UNIT/3 ML CARTRIDGE SQ SCH (20:28)
[2017-03-21] MEDS: CARBIDOPA/LEVODOPA CR 25-100MG TABLET.SA PO SCH (20:31)
[2017-03-21] MEDS: ROSUVASTATIN 5 MG PO SCH (20:33)
[2017-03-21] MEDS: [UNRECOGNIZED DRUG - OTHER] PO SCH (20:33)
[2017-03-22] VITALS (23 sets, daily range): BP systolic 113–145; BP diastolic 53–93
[2017-03-22] MEDS: MEROPENEM 500 MG in IV NORMAL SALINE 50 ML IV SCH ×2 (01:19→14:14)
[2017-03-22 05:33] LABS: BASOPHILS % (AUTO) 0.4 % (0.0-2.0); EOSINOPHILS # (AUTO) 0.1 K/uL (0.0-0.7); EOSINOPHILS % (AUTO) 1.7 % (0.0-7.0); HEMATOCRIT 26.3 % (36.7-47.1); HEMOGLOBIN 8.5 g/dL (12.5-16.3); LYMPHOCYTES # (AUTO) 0.8 K/uL (20.0-40.0); LYMPHOCYTES % (AUTO) 9.3 % (20.5-51.5); MEAN CORPUSCULAR HEMOGLOBIN 29.5 uug (23.8-33.4); MEAN CORPUSCULAR HGB CONC 32 g/dL (32.5-36.3); MEAN CORPUSCULAR VOLUME 91.1 fL (73.0-96.2); MONOCYTES # (AUTO) 0.5 K/uL (2.0-10.0); MONOCYTES % (AUTO) 5.8 % (0.0-11.0); NEUTROPHILS # (AUTO) 6.7 K/uL (1.8-8.9); NEUTROPHILS % (AUTO) 82.8 % (38.5-71.5); PLATELET COUNT (AUTO) 233 K/uL (152-348); RED BLOOD CELL COUNT(AUTO) 2.88 MIL/uL (4.06-5.63); WHITE BLOOD COUNT (AUTO) 8.1 K/uL (3.6-10.2)
[2017-03-22 05:41] LABS: ALKALINE PHOSPHATASE 43 U/L (50-136); ASPARTATE AMINOTRANSFERASE 23 U/L (15-37); BILIRUBIN,TOTAL 0.3 mg/dL (0.2-1.0); CARBON DIOXIDE 31 mmol/L (21-32); CHLORIDE 117 mmol/L (98-107); CREATININE 1.1 mg/dL (0.6-1.3); GLUCOSE 149 mg/dL (74-106); MAGNESIUM 2.4 mg/dL (1.8-2.4); PHOSPHOROUS 3.4 mg/dL (2.5-4.9); POTASSIUM 3.4 mmol/L (3.5-5.1); TOTAL PROTEIN, SERUM 6.5 g/dL (6.4-8.2); UREA NITROGEN, BLOOD 29 mg/dL (7-18)
[2017-03-22] MEDS: ENALAPRIL 5 MG TABLET PEG SCH ×2 (05:52→17:42)
[2017-03-22] MEDS: PANTOPRAZOLE ORAL SUSPENSION 40 MG SUSPDR.PKT GT SCH (05:52)
[2017-03-22 05:56] LABS: ALANINE AMINOTRANSFERASE < 6 U/L (16-63)
[2017-03-22] MEDS: BLOOD SUGAR DIAGNOSTIC 1 EACH STRIP VI SCH ×4 (05:56→23:53)
[2017-03-22] MEDS: INSULIN REGULAR, HUMAN 300 UNIT/3 ML VIAL SQ PRN ×4 (05:57→23:56)
[2017-03-22] MEDS: POTASSIUM CHLORIDE 10 MEQ in IV D5W 1000ML 1,000 ML IV PRN ×2 (06:18→17:35)
[2017-03-22] MEDS: IPRATROPIUM BROMIDE 0.5 MG/2.5 ML NEBU NEB SCH ×4 (07:47→19:04)
[2017-03-22] MEDS: ALBUTEROL SULFATE 2.5 MG/3 ML NEBU NEB SCH ×4 (07:47→19:04)
[2017-03-22] MEDS: ASPIRIN 81 MG TAB.CHEW GT SCH (08:08)
[2017-03-22] MEDS: glipiZIDE 5 MG TABLET GT SCH ×2 (08:08→17:46)
[2017-03-22] MEDS: METOPROLOL TARTRATE 50 MG TABLET GT SCH ×2 (08:09→21:00)
[2017-03-22] MEDS: LACTOBACILLUS RHAMNOSUS GG 1 EACH CAPSULE GT SCH ×2 (08:10→21:02)
[2017-03-22] MEDS: CARBIDOPA/LEVODOPA 25-250MG TABLET GT SCH ×4 (08:10→21:02)
[2017-03-22] MEDS: ACETAMINOPHEN 325 MG TABLET GT PRN (08:10)
[2017-03-22] MEDS: BETHANECHOL CHLORIDE 25 MG TABLET GT SCH ×3 (08:11→17:41)
[2017-03-22] MEDS: LINAGLIPTIN 5 MG TABLET PO SCH (08:11)
[2017-03-22] MEDS: FLUCONAZOLE 100 MG TABLET GT SCH (08:14)
[2017-03-22] MEDS ORDERED: POTASSIUM CHLORIDE 20 MEQ POWDER PACKET GT ONE (11:15)
[2017-03-22] MEDS ORDERED: VANCOMYCIN IV 1,250 MG in IV DEXTROSE 5% 500 ML IV ONE (12:00)
[2017-03-22] MEDS: DIABETICSOURCE AC 1000ML LIQUID GT PRN (17:48)
[2017-03-22] MEDS: [UNRECOGNIZED DRUG - OTHER] PO SCH (21:02)
[2017-03-22] MEDS: ROSUVASTATIN 5 MG PO SCH (21:02)
[2017-03-22] MEDS: CARBIDOPA/LEVODOPA CR 25-100MG TABLET.SA PO SCH (21:02)
[2017-03-22] MEDS: INSULIN DETEMIR 300 UNIT/3 ML CARTRIDGE SQ SCH (21:04)
[2017-03-23] VITALS (7 sets, daily range): BP systolic 101–131; BP diastolic 48–71
[2017-03-23] MEDS: IPRATROPIUM BROMIDE 0.5 MG/2.5 ML NEBU NEB PRN (03:32)
[2017-03-23] MEDS: ALBUTEROL SULFATE 2.5 MG/3 ML NEBU NEB PRN (03:32)
[2017-03-23] MEDS: MEROPENEM 500 MG in IV NORMAL SALINE 50 ML IV SCH ×2 (03:42→15:25)
[2017-03-23] MEDS: POTASSIUM CHLORIDE 10 MEQ in IV D5W 1000ML 1,000 ML IV PRN (03:43)
[2017-03-23] MEDS: BLOOD SUGAR DIAGNOSTIC 1 EACH STRIP VI SCH ×3 (05:12→16:57)
[2017-03-23] MEDS: INSULIN REGULAR, HUMAN 300 UNIT/3 ML VIAL SQ PRN ×3 (05:15→17:00)
[2017-03-23] MEDS: PANTOPRAZOLE ORAL SUSPENSION 40 MG SUSPDR.PKT GT SCH (05:17)
[2017-03-23] MEDS: ENALAPRIL 5 MG TABLET PEG SCH ×2 (05:18→16:56)
[2017-03-23] MEDS: ALBUTEROL SULFATE 2.5 MG/3 ML NEBU NEB SCH ×4 (07:03→19:44)
[2017-03-23] MEDS: IPRATROPIUM BROMIDE 0.5 MG/2.5 ML NEBU NEB SCH ×4 (07:03→19:44)
[2017-03-23 07:13] LABS: BASOPHILS % (AUTO) 0.4 % (0.0-2.0); EOSINOPHILS # (AUTO) 0.1 K/uL (0.0-0.7); EOSINOPHILS % (AUTO) 1.9 % (0.0-7.0); LYMPHOCYTES # (AUTO) 0.7 K/uL (20.0-40.0); LYMPHOCYTES % (AUTO) 11.5 % (20.5-51.5); MEAN CORPUSCULAR HEMOGLOBIN 29.7 uug (23.8-33.4); MEAN CORPUSCULAR HGB CONC 33 g/dL (32.5-36.3); MONOCYTES # (AUTO) 0.4 K/uL (2.0-10.0); NEUTROPHILS # (AUTO) 5.2 K/uL (1.8-8.9); NEUTROPHILS % (AUTO) 80.2 % (38.5-71.5); PLATELET COUNT (AUTO) 201 K/uL (152-348); RED BLOOD CELL COUNT(AUTO) 2.57 MIL/uL (4.06-5.63); WHITE BLOOD COUNT (AUTO) 6.5 K/uL (3.6-10.2)
[2017-03-23 07:18] LABS: CARBON DIOXIDE 32 mmol/L (21-32); CHLORIDE 108 mmol/L (98-107); CREATININE 1.1 mg/dL (0.6-1.3); GLUCOSE 233 mg/dL (74-106); MAGNESIUM 2.2 mg/dL (1.8-2.4); PHOSPHOROUS 2.7 mg/dL (2.5-4.9); POTASSIUM 3.3 mmol/L (3.5-5.1); UREA NITROGEN, BLOOD 27 mg/dL (7-18); VANCOMYCIN,RANDOM 12.5 ug/mL (18.0-26.0)
[2017-03-23 07:27] LABS: HEMATOCRIT 23.2 % (36.7-47.1); HEMOGLOBIN 7.6 g/dL (12.5-16.3)
[2017-03-23] MEDS: METOPROLOL TARTRATE 50 MG TABLET GT SCH ×2 (09:02→21:55)
[2017-03-23] MEDS: CARBIDOPA/LEVODOPA 25-250MG TABLET GT SCH ×4 (09:02→21:03)
[2017-03-23] MEDS: FLUCONAZOLE 100 MG TABLET GT SCH (09:02)
[2017-03-23] MEDS: LACTOBACILLUS RHAMNOSUS GG 1 EACH CAPSULE GT SCH ×2 (09:02→21:03)
[2017-03-23] MEDS: glipiZIDE 5 MG TABLET GT SCH ×2 (09:03→16:56)
[2017-03-23] MEDS: ASPIRIN 81 MG TAB.CHEW GT SCH (09:03)
[2017-03-23] MEDS: LINAGLIPTIN 5 MG TABLET PO SCH (09:03)
[2017-03-23] MEDS: BETHANECHOL CHLORIDE 25 MG TABLET GT SCH ×3 (09:03→16:55)
[2017-03-23] MEDS ORDERED: POTASSIUM CHLORIDE 20 MEQ POWDER PACKET GT ONE (12:15)
[2017-03-23] MEDS: VANCOMYCIN IV 1,250 MG in IV NORMAL SALINE 500 ML IV SCH (12:20)
[2017-03-23] MEDS: CARBIDOPA/LEVODOPA CR 25-100MG TABLET.SA PO SCH (21:03)
[2017-03-23] MEDS: MORPHINE SULFATE 4 MG/1 ML DISP.SYRIN IV PRN (21:04)
[2017-03-23] MEDS: INSULIN DETEMIR 300 UNIT/3 ML CARTRIDGE SQ SCH (21:08)
[2017-03-23] MEDS: ROSUVASTATIN 5 MG PO SCH (21:55)
[2017-03-23] MEDS: [UNRECOGNIZED DRUG - OTHER] PO SCH (21:55)
[2017-03-24 00:04] VITALS: BP 125/67
[2017-03-24] MEDS: BLOOD SUGAR DIAGNOSTIC 1 EACH STRIP VI SCH ×4 (00:13→19:03)
[2017-03-24 00:54] VITALS: BP 139/69
[2017-03-24] MEDS: MEROPENEM 500 MG in IV NORMAL SALINE 50 ML IV SCH (01:37)
[2017-03-24 04:00] VITALS: BP 141/72
[2017-03-24] MEDS: PANTOPRAZOLE ORAL SUSPENSION 40 MG SUSPDR.PKT GT SCH (05:37)
[2017-03-24] MEDS: VANCOMYCIN IV 1,250 MG in IV NORMAL SALINE 500 ML IV SCH (05:37)
[2017-03-24] MEDS: ENALAPRIL 5 MG TABLET PEG SCH ×2 (05:40→18:47)
[2017-03-24] MEDS: INSULIN REGULAR, HUMAN 300 UNIT/3 ML VIAL SQ PRN ×3 (06:10→19:04)
[2017-03-24] MEDS: ALBUTEROL SULFATE 2.5 MG/3 ML NEBU NEB SCH ×4 (07:28→19:59)
[2017-03-24] MEDS: IPRATROPIUM BROMIDE 0.5 MG/2.5 ML NEBU NEB SCH ×4 (07:28→19:59)
[2017-03-24 07:32] LABS: BASOPHILS % (AUTO) 0.7 % (0.0-2.0); EOSINOPHILS # (AUTO) 0.1 K/uL (0.0-0.7); EOSINOPHILS % (AUTO) 1.4 % (0.0-7.0); LYMPHOCYTES # (AUTO) 0.7 K/uL (20.0-40.0); LYMPHOCYTES % (AUTO) 11.4 % (20.5-51.5); MEAN CORPUSCULAR HEMOGLOBIN 30.1 uug (23.8-33.4); MEAN CORPUSCULAR HGB CONC 34 g/dL (32.5-36.3); MEAN CORPUSCULAR VOLUME 88.6 fL (73.0-96.2); MONOCYTES # (AUTO) 0.4 K/uL (2.0-10.0); NEUTROPHILS # (AUTO) 4.7 K/uL (1.8-8.9); NEUTROPHILS % (AUTO) 79.5 % (38.5-71.5); PLATELET COUNT (AUTO) 228 K/uL (152-348); RED BLOOD CELL COUNT(AUTO) 3.01 MIL/uL (4.06-5.63); WHITE BLOOD COUNT (AUTO) 5.9 K/uL (3.6-10.2)
[2017-03-24 07:35] LABS: ALANINE AMINOTRANSFERASE 21 U/L (16-63); ALKALINE PHOSPHATASE 50 U/L (50-136); ASPARTATE AMINOTRANSFERASE 29 U/L (15-37); BILIRUBIN,TOTAL 0.5 mg/dL (0.2-1.0); CARBON DIOXIDE 28 mmol/L (21-32); CHLORIDE 111 mmol/L (98-107); GLUCOSE 199 mg/dL (74-106); HEMATOCRIT 26.7 % (36.7-47.1); HEMOGLOBIN 9.1 g/dL (12.5-16.3); MAGNESIUM 2.2 mg/dL (1.8-2.4); POTASSIUM 3.9 mmol/L (3.5-5.1); UREA NITROGEN, BLOOD 22 mg/dL (7-18)
[2017-03-24] MEDS: FLUCONAZOLE 100 MG TABLET GT SCH (08:08)
[2017-03-24] MEDS: BETHANECHOL CHLORIDE 25 MG TABLET GT SCH ×3 (08:08→18:47)
[2017-03-24] MEDS: glipiZIDE 5 MG TABLET GT SCH ×2 (08:08→18:47)
[2017-03-24] MEDS: ASPIRIN 81 MG TAB.CHEW GT SCH (08:08)
[2017-03-24] MEDS: CARBIDOPA/LEVODOPA 25-250MG TABLET GT SCH ×4 (08:09→21:05)
[2017-03-24] MEDS: LINAGLIPTIN 5 MG TABLET PO SCH (08:10)
[2017-03-24] MEDS: LACTOBACILLUS RHAMNOSUS GG 1 EACH CAPSULE GT SCH ×2 (08:10→21:04)
[2017-03-24] MEDS: METOPROLOL TARTRATE 50 MG TABLET GT SCH ×2 (08:15→21:04)
[2017-03-24 12:20] VITALS: BP 98/58
[2017-03-24] MEDS ORDERED: Nut.tx.glucose Intolerance,Soy GT (16:03)
[2017-03-24] MEDS ORDERED: ASPI81TA31 GT (16:03)
[2017-03-24] MEDS ORDERED: BETH25TA9 GT (16:03)
[2017-03-24] MEDS ORDERED: ENAL5TAB PEG (16:03)
[2017-03-24] MEDS ORDERED: GLIP5TAB13 GT (16:03)
[2017-03-24] MEDS ORDERED: INSU100V28 SQ (16:03)
[2017-03-24] MEDS ORDERED: HYDR-3326 GT (16:03)
[2017-03-24] MEDS ORDERED: FLUC100T GT (16:03)
[2017-03-24] MEDS ORDERED: MENT71OI TOP (16:03)
[2017-03-24] MEDS ORDERED: Blood Sugar Diagnostic VI (16:03)
[2017-03-24] MEDS ORDERED: DEXT50DI8 IV (16:03)
[2017-03-24] MEDS ORDERED: INSU100I19 SQ (16:03)
[2017-03-24] MEDS ORDERED: ALBU2.5V7 NEB (16:03)
[2017-03-24] MEDS ORDERED: MULT1TAB73 PO (16:03)
[2017-03-24] MEDS ORDERED: LINA5TAB PO (16:03)
[2017-03-24] MEDS ORDERED: ACET325T53 GT (16:03)
[2017-03-24] MEDS ORDERED: IPRA0.2S6 NEB (16:03)
[2017-03-24] MEDS ORDERED: CARB1TAB24 GT (16:03)
[2017-03-24] MEDS ORDERED: PANT40SU2 GT (16:03)
[2017-03-24] MEDS ORDERED: METO50TA16 GT (16:03)
[2017-03-24] MEDS ORDERED: LACT1CAP57 GT (16:03)
[2017-03-24] MEDS ORDERED: CARB1TAB39 PO (16:03)
[2017-03-24] MEDS ORDERED: FURO-152 GT (16:19)
[2017-03-24] MEDS ORDERED: POTA10CA43 GT (16:19)
[2017-03-24 16:23] VITALS: BP 124/69
[2017-03-24] MEDS: POTASSIUM CHLORIDE 10 MEQ in IV D5W 1000ML 1,000 ML IV PRN (18:48)
[2017-03-24] MEDS: DIABETICSOURCE AC 1000ML LIQUID GT PRN (18:54)
[2017-03-24 20:06] VITALS: BP 146/75
[2017-03-24] MEDS ORDERED: INSULIN DETEMIR 300 UNIT/3 ML CARTRIDGE SQ SCH (21:00)
[2017-03-24] MEDS: CARBIDOPA/LEVODOPA CR 25-100MG TABLET.SA PO SCH (21:04)
[2017-03-24] MEDS: ROSUVASTATIN 5 MG PO SCH (21:06)
[2017-03-24] MEDS: [UNRECOGNIZED DRUG - OTHER] PO SCH (21:06)
[2017-03-25] MEDS: BLOOD SUGAR DIAGNOSTIC 1 EACH STRIP VI SCH ×2 (00:15→06:34)
[2017-03-25] MEDS: INSULIN REGULAR, HUMAN 300 UNIT/3 ML VIAL SQ PRN ×2 (00:18→06:40)
[2017-03-25 00:24] VITALS: BP 137/57
[2017-03-25 04:00] VITALS: BP 95/59
[2017-03-25] MEDS: ENALAPRIL 5 MG TABLET PEG SCH (06:00)
[2017-03-25] MEDS: PANTOPRAZOLE ORAL SUSPENSION 40 MG SUSPDR.PKT GT SCH (06:33)
[2017-03-25] MEDS: glipiZIDE 5 MG TABLET GT SCH (06:33)
[2017-03-25] MEDS: IPRATROPIUM BROMIDE 0.5 MG/2.5 ML NEBU NEB SCH ×2 (07:11→11:06)
[2017-03-25] MEDS: ALBUTEROL SULFATE 2.5 MG/3 ML NEBU NEB SCH ×2 (07:11→11:06)
[2017-03-25 09:11] LABS: BASOPHILS % (AUTO) 0.4 % (0.0-2.0); EOSINOPHILS # (AUTO) 0.1 K/uL (0.0-0.7); EOSINOPHILS % (AUTO) 1.7 % (0.0-7.0); HEMATOCRIT 26.7 % (36.7-47.1); LYMPHOCYTES # (AUTO) 0.8 K/uL (20.0-40.0); LYMPHOCYTES % (AUTO) 14.2 % (20.5-51.5); MEAN CORPUSCULAR HEMOGLOBIN 29.9 uug (23.8-33.4); MEAN CORPUSCULAR HGB CONC 34 g/dL (32.5-36.3); MEAN CORPUSCULAR VOLUME 88.7 fL (73.0-96.2); MONOCYTES # (AUTO) 0.5 K/uL (2.0-10.0); MONOCYTES % (AUTO) 8.6 % (0.0-11.0); NEUTROPHILS % (AUTO) 75.1 % (38.5-71.5); PLATELET COUNT (AUTO) 247 K/uL (152-348); RED BLOOD CELL COUNT(AUTO) 3.01 MIL/uL (4.06-5.63); WHITE BLOOD COUNT (AUTO) 5.4 K/uL (3.6-10.2)
[2017-03-25 09:15] LABS: ALANINE AMINOTRANSFERASE 17 U/L (16-63); ALKALINE PHOSPHATASE 48 U/L (50-136); ASPARTATE AMINOTRANSFERASE 24 U/L (15-37); BILIRUBIN,TOTAL 0.3 mg/dL (0.2-1.0); CARBON DIOXIDE 30 mmol/L (21-32); CHLORIDE 109 mmol/L (98-107); CREATININE 0.9 mg/dL (0.6-1.3); GLUCOSE 109 mg/dL (74-106); MAGNESIUM 2.1 mg/dL (1.8-2.4); PHOSPHOROUS 3.6 mg/dL (2.5-4.9); POTASSIUM 3.5 mmol/L (3.5-5.1); TOTAL PROTEIN, SERUM 6.2 g/dL (6.4-8.2); UREA NITROGEN, BLOOD 20 mg/dL (7-18)
[2017-03-25] MEDS: LINAGLIPTIN 5 MG TABLET PO SCH (09:27)
[2017-03-25] MEDS: BETHANECHOL CHLORIDE 25 MG TABLET GT SCH (09:27)
[2017-03-25] MEDS: ASPIRIN 81 MG TAB.CHEW GT SCH (09:27)
[2017-03-25] MEDS: FLUCONAZOLE 100 MG TABLET GT SCH (09:27)
[2017-03-25] MEDS: CARBIDOPA/LEVODOPA 25-250MG TABLET GT SCH (09:27)
[2017-03-25 09:28] VITALS: BP 105/62
[2017-03-25] MEDS: METOPROLOL TARTRATE 50 MG TABLET GT SCH (09:28)
[2017-03-25] MEDS: LACTOBACILLUS RHAMNOSUS GG 1 EACH CAPSULE GT SCH (09:35)
== END 2017-03-25 12:15 | DRG 871 ==
LOC: ER 20:49 → TELE 03-08 04:50 → MED 03-10 13:45 → TELE 03-20 23:05 → CCU 03-21 05:40 → TELE 03-22 17:08
PROVIDERS: ADMIT Internal Medicine; ATTEND Nurse Practitioner Acute Care
PROC: 3E0G76Z Introduction of Nutritional Substance into Upper GI, Via Natural or Artificial Opening (ICD-10-PCS; 2017-03-16)
PROC: 0DH63UZ Insertion of Feeding Device into Stomach, Percutaneous Approach (ICD-10-PCS; principal; 2017-03-16 12:00)
PROC: 0D9670Z Drainage of Stomach with Drainage Device, Via Natural or Artificial Opening (ICD-10-PCS; 2017-03-22)
PROC: 30233N1 Transfusion of Nonautologous Red Blood Cells into Peripheral Vein, Percutaneous Approach (ICD-10-PCS; 2017-03-23)
DX: A41.9 Sepsis, unspecified organism (principal); J69.0 Pneumonitis due to inhalation of food and vomit; N17.0 Acute kidney failure with tubular necrosis; I50.33 Acute on chronic diastolic (congestive) heart failure; G93.40 Encephalopathy, unspecified; R13.10 Dysphagia, unspecified; E44.0 Moderate protein-calorie malnutrition; E87.0 Hyperosmolality and hypernatremia; E87.2 Acidosis; Z66 Do not resuscitate; B37.49 Other urogenital candidiasis; R53.2 Functional quadriplegia; D68.59 Other primary thrombophilia; G47.33 Obstructive sleep apnea (adult) (pediatric); R06.03 Acute respiratory distress; R65.20 Severe sepsis without septic shock; I11.0 Hypertensive heart disease with heart failure; I25.10 Atherosclerotic heart disease of native coronary artery without angina pectoris; Z95.1 Presence of aortocoronary bypass graft; Z79.84 Long term (current) use of oral hypoglycemic drugs; F03.90 Unspecified dementia, unspecified severity, without behavioral disturbance, psychotic disturbance, mood disturbance, and anxiety; Z87.440 Personal history of urinary (tract) infections; S00.572A Other superficial bite of oral cavity, initial encounter; Y92.230 Patient room in hospital as the place of occurrence of the external cause; X58.XXXA Exposure to other specified factors, initial encounter; N40.0 Benign prostatic hyperplasia without lower urinary tract symptoms; E87.6 Hypokalemia; G20 Parkinson's disease; K59.00 Constipation, unspecified; M48.9 Spondylopathy, unspecified; K21.9 Gastro-esophageal reflux disease without esophagitis; K44.9 Diaphragmatic hernia without obstruction or gangrene; E11.9 Type 2 diabetes mellitus without complications; Z79.82 Long term (current) use of aspirin; Z79.899 Other long term (current) drug therapy; Z86.73 Personal history of transient ischemic attack (TIA), and cerebral infarction without residual deficits; Z90.79 Acquired absence of other genital organ(s); E78.00 Pure hypercholesterolemia, unspecified; I70.0 Atherosclerosis of aorta; D64.9 Anemia, unspecified; E66.9 Obesity, unspecified; Z68.24 Body mass index [BMI] 24.0-24.9, adult; K76.0 Fatty (change of) liver, not elsewhere classified; Z87.442 Personal history of urinary calculi; S90.821A Blister (nonthermal), right foot, initial encounter; Y92.89 Other specified places as the place of occurrence of the external cause; S30.0XXA Contusion of lower back and pelvis, initial encounter
CPT/HCPCS: 36415; 36600; 43761; 70030-TC; 71045; 74018; 76770; 83550; 83605; 83735; 84100; 84156; 84300; 85025; 85730; 86850; 86900; 86901; 86920; 87040; 87086; 87400; 92526; 92610; 93005; 93307; 94640; 94664; A4217; A4663; J0696; J1170; J1580; J1815; J1940; J2001; J2185; J2270; J2543; J3370; J3480; J3490; J3590; J7030; J7040; J7042; J7050; J7060; J7070; P9016-BL; P9021